=== PATIENT | male | born 1945 | race Caucasian/White ===

== ENCOUNTER → 2017-01-26 | Outpatient (CLI) | payer OTHER ==
[~2017-01-26] MED LIST: ASPI81TA28 PO; ATOR-22 PO; CETI10TA84 PO; PRLSR20 PO
[2017-01-26 13:55] LABS: LYME DISEASE AB IGG NEG (NEG); LYME DISEASE AB IGM NEG (NEG)
[2017-01-26 14:09] LABS: AST/SGOT 23 U/L (15-37); BLOOD UREA NITROGEN 17 mg/dl (7-18); BUN/CREATININE RATIO 18.1 (10-20); CALCIUM 8.3 mg/dl (8.5-10.1); CARBON DIOXIDE 22 mmol/L (21-32); CHLORIDE 112 mmol/L (98-107); CHOLESTEROL 129 mg/dl (0-200); CREATININE 0.96 mg/dl (0.60-1.40); GLUCOSE 103 mg/dl (70-99); SODIUM 143 mmol/L (136-145)
[2017-01-26 14:13] LABS: ALB/GLOB RATIO 1.1 (0.9-2); ALKALINE PHOSPHATASE 65 U/L (45-117); ALT/SGPT 25 U/L (12-78); CHOLESTEROL/HDL RATIO 3.2; HDL CHOLESTEROL 40 mg/dl; LDL CHOLESTEROL CALCULATED 75 mg/dl; TRIGLYCERIDES 68 mg/dl (0-150); VERY LOW DENSITY LIPOPROT CALC 14 mg/dl
== END | disposition home or self-care (01) ==
LOC: C.LABPVFM 07:52
PROVIDERS: ATTEND Family Medicine
DX: Z11.59 Encounter for screening for other viral diseases (principal); R73.01 Impaired fasting glucose; E78.5 Hyperlipidemia, unspecified; G47.33 Obstructive sleep apnea (adult) (pediatric); K20.9 Esophagitis, unspecified; W57.XXXA Bitten or stung by nonvenomous insect and other nonvenomous arthropods, initial encounter

== ENCOUNTER → 2017-03-29 | Outpatient (CLI) | payer OTHER ==
--- NOTE | 2017-03-29 14:45 | DIAGNOSTIC IMAGING REPORT ---
(RENAL)RETROPERITON COMP CLINICAL HISTORY: 71 years-old Male presenting with acquired cyst of the kidney. TECHNIQUE: Real-time grayscale and limited color Doppler ultrasound imaging of the kidneys and bladder was performed. COMPARISON: 01/15/2015. FINDINGS: Right kidney: Normal echogenicity. Right kidney measures 12.3 cm. No hydronephrosis. 1.5 x 1.1 x 0.9 cm simple appearing parapelvic cyst in the interpolar region. This was likely present on prior exam. Normal perfusion. Left kidney: Normal echogenicity. Left kidney measures 12.2 cm. No hydronephrosis. 8.8 x 7.0 x 6.7 cm exophytic simple appearing cyst laterally at the lower pole, previously 7.4 x 7.4 x 7.7 cm. Additional simple cysts at the medial aspect of the lower pole measuring 4.3 x 4.7 x 4.4 cm, previously 4.8 x 4.3 x 3.5 cm. Normal perfusion. Bladder: No bladder wall thickening. Bilateral ureteral jets present. Other: None. IMPRESSION: 1. Simple appearing bilateral renal cysts, the largest on the left may be slightly increased in size since the prior exam. No sonographic evidence of obstruction or suspicious renal mass. Electronically signed by: Stephen Torres M.D. 03/29/2017 2:44 PM Dictated Date/Time: 03/29/2017 2:40 PM
--- NOTE | 2017-04-05 07:05 | CODING QUERY MEDICAL NECESSITY ---
SUPPORTING DIAGNOSIS NEEDED Dr. Spaulding, A supporting diagnosis is required for the test/procedure performed on this patient in order for us to be reimbursed by the patient's insurance. Please provide a supporting diagnosis for the following test/procedure listed below next to the test name along with your signature. *If there is no additional diagnosis for this patient that would support the following test/procedure please document that below next to the test/procedure. Test(s)/Procedure(s) that require a supporting diagnosis: * [id number] PSA DIAGNOSIS: DATE OF SERVICE: 03/29/17 Provider Signature: Date: Thank you Andrews Vazquez [facility] Information Management Once completed, please kindly fax back to [phone] For questions please call [phone]
== END | disposition home or self-care (01) ==
LOC: C.ULTR 13:11
PROVIDERS: ATTEND Urology
DX: N28.1 Cyst of kidney, acquired (principal); N40.0 Benign prostatic hyperplasia without lower urinary tract symptoms

== ENCOUNTER 2022-06-28 16:55 | Observation (INO) ==
[2022-06-28] MEDS ORDERED: FAMOTIDINE 20MG IV PUSH 20 MG/5 ML SYR IV STA (17:10)
[2022-06-28] MEDS ORDERED: diphenhydrAMINE 50 MG/ML VIAL IV STA (17:10)
[2022-06-28] MEDS ORDERED: methylPREDNISolone 125 MG/2 ML VIAL IV STA (17:10)
[2022-06-28] MEDS ORDERED: SODIUM CHLORIDE 0.9% 1000ML 500 ML IV ONE (17:10)
[2022-06-28 17:49] LABS: Basophils # (auto) 0.06 K/uL (0-0.2); Basophils % (auto) 1.1 %; Eosinophils # (auto) 0.08 K/uL (0-0.50); Eosinophils % (auto) 1.5 %; Hematocrit (blood only) 44.6 % (40.1-51.0); Hemoglobin 15.5 g/dl (14.0-18.0); Immature Granulocytes # (auto) 0.03 K/uL (0.00-0.02); Immature Granulocytes % (auto) 0.6 %; Lymphocytes # (auto) 1.17 K/uL (1.2-3.4); Lymphocytes % (auto) 21.5 %; Mean Corpuscular Hemoglobin 30.8 pg (25.0-34.0); Mean Corpuscular Hgb Conc 34.8 g/dL (32.0-36.0); Mean Corpuscular Volume 88.7 fL (80.0-100.0); Mean Platelet Volume 10.5 fL (9.4-12.4); Monocytes # (auto) 0.59 K/uL (0.24-0.82); Monocytes % (auto) 10.8 %; Neutrophils # (auto) 3.51 K/uL (1.4-6.5); Neutrophils % (auto) 64.5 %; Platelet Count 190 K/uL (130-400); RDW Coefficient of Variation 13.3 % (11.5-14.5); RDW Standard Deviation 43.3 fL (36.4-46.3); Red Blood Count 5.03 M/uL (4.63-6.08); White Blood Count 5.44 K/ul (4.8-10.8)
--- NOTE | 2022-06-28 17:55 | Emergency Department Note ---
History of Present Illness General Chief complaint: Allergic Reaction Stated complaint: SWOLLEN TONGUE ON LEFT SIDE Time Seen by Provider: 06/28/22 17:09 History of Present Illness Provider complaint: L tongue swelling Onset (ago): hour(s) 1 Location: mouth and left Radiation: non-radiation Current Pain Intensity: 0 Relieved By: + none Exacerbated By: + none Associated symptoms: no confusion, no chest pain, no cough, no fever/chills, no headaches, no nausea/vomiting or no shortness of breath 76-year-old male presents emergency department for left tongue swelling. Patient states he was outside blowing his leaves when suddenly he reported to his that his left tongue felt swollen and she looked in his mouth and it appeared swollen. He reports no difficulty breathing. No rash. Patient states he did not eat anything new and does not think he was bit by anything. Patient is on lisinopril. Home Medications Medication Instructions Recorded Confirmed Type fluticasone propionate 50 2 sprays intranasal DAILY PRN 03/16/19 06/28/22 Hi story mcg/actuation nasal Allergy Symptoms #1 g spray,suspension cholecalciferol (vitamin D3) 125 125 mcg PO QAM 04/01/21 06/28/22 History mcg (5,000 unit) capsule hydrochlorothiazide 25 mg tablet 25 mg PO QAM #90 tabs 09/29/21 06/28/22 Rx lisinopril 20 mg tablet 20 mg PO DAILY #90 tabs 05/05/22 06/28/22 Rx Allergies Allergy/AdvReac Type Severity Reaction Status Date / Time Opioids - Morphine Analogues Allergy Intermediate Nausea Verified 06/28/22 19:51 oxycodone [From Percocet] Allergy Intermediate Nausea Verified 06/28/22 19:51 weed pollen Allergy Intermediate Nausea Verified 06/28/22 19:51 pollen extracts Allergy Unknown Unknown Verified 06/28/22 19:51 morphine AdvReac Unknown N/V, Verified 06/28/22 19:51 diaphoretic Past Med/Surg History Medical History Benign prostatic hyperplasia with urinary obstruction Chronic back pain Diabetes Type II Hgb A1C 6.3 on 03/27/21 GERD (gastroesophageal reflux disease) OCCASIONAL Hiatal hernia Hyperlipidemia Diet controlled Hypertension Mixed conductive and sensorineural hearing loss Hearing aids bilaterally Obesity (BMI 30-39.9) Osteoarthritis Renal cyst Just monitoring Sleep apnea CPAP Vertigo Occasionally Surgical History H/O hernia repair History of adenoidectomy History of ankle surgery right History of colonoscopy History of esophagogastroduodenoscopy (EGD) History of laminectomy lumbar History of nasal septoplasty History of repair of rotator cuff RIGHT W/ 3 SCREWS History of tonsillectomy History of total knee replacement LEFT KNEE Family History Family/Other Hypertension Nephrolithiasis Denies family history of Ovarian cancer Prostate cancer Myocardial infarction Breast cancer Colorectal cancer Social History Smoking Status: Never smoker Tobacco Type: Cigarettes Age Started Using Tobacco: 14; Age Quit Using Tobacco: 40; Cigarettes Per Day: 10; Second Hand Exposure: Yes; Hx Alcohol Use: Yes Alcohol type: beer and hard liquor Hx Substance Use: No Preferred Language: Indian Communication Ability: Effective Hearing Ability: Use of Hearing Aid Director Public Service Required: No Beliefs That Will Affect Care: None marital status: Current Living Situation: Spouse current occupational status: retired How many Children do You have: 1 Feels Safe at Home: Yes Safety Concerns: Feels Safe At This Time Childhood Exposure to Second-Hand Smoke: Yes caffeine: Yes Dental Care, Regularly: Yes Physical Activity Frequency: Daily Seatbelt Use: always Sunscreen Use: No Assistive Devices: Glasses and Hearing Aid - Bilateral Review of Systems A total of 10 systems reviewed and were otherwise negative Physical Exam Vital Signs Vital Signs - 24 hr 06/28/22 17:00 06/28/22 17:26 06/28/22 17:26 Temperature 36.8 C Temperature Source Temporal Artery Scan Pulse Rate 82 Pulse Rate [Apical] 64 Pulse Rhythm Regular Pulse Rhythm [Apical] Regular Respiratory Rate 16 20 Respiratory Effort / Characteristics Non-Labored Spontaneous Respiratory Depth Normal Blood Pressure 139/77 Blood Pressure Mean 97 Pulse Oximetry 94 96 Oxygen Delivery Method Room Air Room Air Room Air Sepsis Recent Fever Within 48 Hours No Sepsis New/Unexplained Change in Mental Status No Sepsis Action Taken by Nursing No Action Required Physical Exam GENERAL: He is oriented to person, place, and time. He appears well-developed and well-nourished. He does not appear distressed. HENT: Exam performed. - Head: Normocephalic and atraumatic. - Right Ear: External ear normal. No mastoid tenderness. - Left Ear: External ear normal. No mastoid tenderness. - Mouth/Throat: The oropharynx is clear and moist. No trismus in the jaw. No dental abscesses or uvula swelling. No oropharyngeal exudate or tonsillar abscesses. Left tongue swelling. No evidence of trauma. No submental swelling or tongue elevation. EYES: Conjunctivae and EOM are normal. Pupils are equal, round, and reactive to light. Right eye exhibits no discharge. Left eye exhibits no discharge. No scleral icterus. NECK: Normal range of motion. Neck supple. No JVD present. No spinous process tenderness present. No carotid bruit present. No rigidity. No tracheal deviation and normal range of motion present. No Brudzinski's sign and no Kernig's sign noted. CV: Normal rate, regular rhythm, normal heart sounds and intact distal pulses. There is no peripheral edema. Palpable radial pulses bue. PULM/CHEST: Effort normal and breath sounds normal. No respiratory distress. No stridor. He has no wheezes. He has no rales. - Chest Wall: He exhibits no tenderness. ABD: The abdomen is soft. Bowel sounds are normal. He has no distension. No mass is present. There is no tenderness. There is no rebound, no guarding, no Baca's sign and no tenderness at McBurney's point. Rovsig negative. MUSC/SKEL: Normal range of motion. There is no peripheral edema, tenderness or deformity. LYMPH: No cervical adenopathy. NEURO: He is alert and oriented to person, place, and time. He has normal strength. No cranial nerve deficit or sensory deficit. Coordination and gait normal. GCS eye subscore is 4. GCS verbal subscore is 5. GCS motor subscore is 6. Cerebellar tests wnl. SKIN: Skin is warm and dry. He is not diaphoretic. PSYCH: He has a normal mood and affect. Behavior is normal. Judgment and thought content normal. Course Course 1708: The patient was evaluated in room C12. A complete history and physical exam was performed Cardiac monitoring: An order was placed for continuous cardiac monitoring. The monitor shows a rate of 60 with sinus rhythm 180: Vital signs stable. Patient in no respiratory distress. Tongue swelling has not worsened but has not improved status post IV Benadryl IV Pepcid IV fluids and IV steroids. It is thought that the patient is most likely suffering from angioedema most likely due to his lisinopril. Patient no respiratory distress. Will be evaluated hospitalist team for observation to make sure that his swelling does not worsen. Case will be discussed with Dr. Becerril [facility] hospitalist. Administered Medications Lactated Ringer's (Lr) 1,000 mls @ 125 mls/hr IV .Q8H SANDRINE Stop: 07/28/22 20:29 Last Admin: 06/28/22 20:59 Dose: 125 mls/hr Documented By: AMY Discontinued Medications Diphenhydramine HCl (Diphenhydramine 50 Mg/Ml Vial) 25 mg IV NOW STA Stop: 06/28/22 17:11 Last Admin: 06/28/22 17:19 Dose: 25 mg Documented By: FRANKLIN Sodium Chloride (Nss 1000ml) 500 mls @ 999 mls/hr IV .Q31M ONE Stop: 06/28/22 17:40 Last Infusion: 06/28/22 18:40 Dose: 0 mls/hr Documented By: Admin: 06/28/22 17:20 Dose: 999 mls/hr Documented By: FRANKLIN Famotidine (Pepcid 20mg Iv Push) 20 mg in 5 mls @ 2.5 mls/min IV NOW STA Stop: 06/28/22 17:11 Last Admin: 06/28/22 17:20 Dose: 2.5 mls/min Documented By: FRANKLIN Methylprednisolone (Methylprednisolone 125 Mg/2 Ml Vial) 125 mg IV NOW STA Stop: 06/28/22 17:11 Last Admin: 06/28/22 17:19 Dose: 125 mg Documented By: FRANKLIN Medical Decision Making Laboratory Data Result diagrams: 06/28/22 17:24 06/28/22 17:24 Lab Results 06/28/22 06/28/22 06/28/22 Range/Units 17:24 17:24 17:55 WBC 5.44 (4.8-10.8) K/ul RBC 5.03 (4.63-6.08) M/uL Hgb 15.5 (14.0-18.0) g/dl Hct 44.6 (40.1-51.0) % MCV 88.7 (80.0-100.0) fL MCH 30.8 (25.0-34.0) pg MCHC 34.8 (32.0-36.0) g/dL RDW Std Deviation 43.3 (36.4-46.3) fL RDW Coeff of Marcus 13.3 (11.5-14.5) % Plt Count 190 (130-400) K/uL MPV 10.5 (9.4-12.4) fL Immature Gran % (Auto) 0.6 % Neut % (Auto) 64.5 % Lymph % (Auto) 21.5 % [place] % (Auto) 10.8 % Eos % (Auto) 1.5 % Baso % (Auto) 1.1 % Neut # (Auto) 3.51 (1.4-6.5) K/uL Lymph # (Auto) 1.17 L (1.2-3.4) K/uL [place] # (Auto) 0.59 (0.24-0.82) K/uL Eos # (Auto) 0.08 (0-0.50) K/uL Baso # (Auto) 0.06 (0-0.2) K/uL Immature Gran # (Auto) 0.03 H (0.00-0.02) K/uL Sodium 139 (136-145) mmol/L Potassium 4.2 (3.5-5.1) mmol/L Chloride 105 (98-107) mmol/L Carbon Dioxide 27 (21-32) mmol/L Anion Gap 7 (3-11) BUN 18 (6-23) mg/dl Creatinine 1.13 (0.6-1.4) mg/dl Est Cr Clr Drug Dosing Not Reportable Est GFR ( Amer) 72.8 ml/min Est GFR (Non-Af Amer) 62.8 ml/min BUN/Creatinine Ratio 15.9 (10-20) Glucose 90 (70-99(Fasting)) mg/dl Calcium 9.4 (8.5-10.1) mg/dl SARS-CoV-2, RNA, NAAT POSITIVE A* (NEGATIVE) Imaging Data Radiologist's Impression: Chest X-Ray 06/28/22 18:13 XR chest 1V portable CLINICAL HISTORY: Shortness of breath. COMPARISON STUDY: Chest radiograph April 08, 2021. FINDINGS: Lung volumes are normal. Lungs are clear. There is no pneumothorax or pleural effusion. Cardiac size is normal. Mediastinal contours are normal. There is no evidence for pulmonary edema. IMPRESSION: No acute cardiopulmonary findings. ACT 112: Negative or not required by law. Electronically signed by: Diego May M.D. 06/28/2022 6:36 PM MDM Narrative Vital signs stable. Patient in no respiratory distress. Tongue swelling has not worsened but has not improved status post IV Benadryl IV Pepcid IV fluids and IV steroids. It is thought that the patient is most likely suffering from angioedema most likely due to his lisinopril. Patient no respiratory distress. Will be evaluated hospitalist team for observation to make sure that his swelling does not worsen. Case will be discussed with Dr. Becerril [facility] hospitalist. Impression & Plan Angioedema Discharge Plan Visit Data Chief Complaint: Allergic Reaction Stated Complaint: SWOLLEN TONGUE ON LEFT SIDE ED Provider: Ulises Middleton Discharge Problem: Angioedema Patient Disposition: Admitted As Inpatient Discharge Instructions Interventions: ED Discharge Assessment Last Done: 06/28/22 20:13
[2022-06-28 18:14] LABS: Anion Gap 7 (3-11); BUN Creatinine Ratio 15.9 (10-20); Blood Urea Nitrogen 18 mg/dl (6-23); Calcium 9.4 mg/dl (8.5-10.1); Carbon Dioxide 27 mmol/L (21-32); Chloride 105 mmol/L (98-107); Est GFR (African American) 72.8 ml/min; Est GFR (Non-African American) 62.8 ml/min; Glucose 90 mg/dl (70-99(Fasting)); Potassium 4.2 mmol/L (3.5-5.1); Sodium 139 mmol/L (136-145)
--- NOTE | 2022-06-28 18:24 | History & Physical Report ---
Date of Service June 28, 2022 Assessment & Plan (1) 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): Plan: - Angioedema most likely secondary to lisinopril without any throat swelling, airway currently stable, will discontinue lisinopril - With improved clinical status deferred FFP - Start 4 day course of prednisone 40mg - Start cetirizine to cover for possible allergic cause - IV Benadryl prn for worsening angioedema - will check C4 - NPO until swelling improves, will start on lactated ringers 125mL/hour while NPO - admit to PCU for monitoring of angioedema (2) Hypertension: Plan: - Continue HCTZ - Will need to f/u with PCP to discuss alternative HTN regimen History of Present Illness Chief Complaint: Angioedema Primary Care Provider: Paul Dotson, 76 year old male with a past medical history of HTN, HLD, GERD, BPH, LACY, impaired fasting glucose presents with left sided tongue swelling. Swelling began this afternoon around 4pm while he was cleaning up leaves in his yard. His lisinopril was increased from 10mg to 20mg in 04/2022. He denies any prior side effects with the lisinopril; dry cough, angioedema. He is also on HCTZ for his HTN, but states that he has not been on any other medications for his blood pressure in the past. He denies any rash, throat swelling, shortness of breath. Denies any new foods, medications or products. ED course significant forIV Benadryl, IV Pepcid, IV fluids and IV steroids with some improvement of swelling. States that initially he didn't have much feeling in his tongue and was very difficult to talk and he has seen improvement in both. Of note his COVID test was positive in the ED. He states that he tested positive for COVID a month ago. He no longer has any symptoms and took at course of Paxlovid at that time. Allergies Allergy/AdvReac Type Severity Reaction Status Date / Time Opioids - Morphine Analogues Allergy Intermediate Nausea Verified 05/05/22 09:34 oxycodone [From Percocet] Allergy Intermediate Nausea Verified 05/05/22 09:34 weed pollen Allergy Intermediate Nausea Verified 05/05/22 09:34 pollen extracts Allergy Unknown Unknown Verified 05/05/22 09:34 morphine AdvReac Unknown N/V, Verified 05/05/22 09:34 diaphoretic Home Medications Medication Instructions Recorded Confirmed Type fluticasone propionate 50 2 sprays intranasal DAILY PRN 03/16/19 05/05/22 History mcg/actuation nasal Allergy Symptoms #1 g spray,suspension cholecalciferol (vitamin D3) 125 125 mcg PO QAM 04/01/21 05/05/22 History mcg (5,000 unit) capsule hydrochlorothiazide 25 mg tablet 25 mg PO QAM #90 tabs 09/29/21 05/05/22 Rx lisinopril 20 mg tablet 20 mg PO DAILY #90 tabs 05/05/22 05/05/22 Rx nirmatrelvir 300 mg (150 mg See Rx Instructions PO .COMPLEX 05/08/22 05/08/22 Rx x2)-ritonavir 100 mg tablet,dose #30 ea pack(EUA) (Paxlovid) Past Med/Surg History Medical History Benign prostatic hyperplasia with urinary obstruction Chronic back pain Diabetes Type II Hgb A1C 6.3 on 03/27/21 GERD (gastroesophageal reflux disease) OCCASIONAL Hiatal hernia Hyperlipidemia Diet controlled Hypertension Mixed conductive and sensorineural hearing loss Hearing aids bilaterally Obesity (BMI 30-39.9) Osteoarthritis Renal cyst Just monitoring Sleep apnea CPAP Vertigo Occasionally Surgical History H/O hernia repair History of adenoidectomy History of ankle surgery right History of colonoscopy History of esophagogastroduodenoscopy (EGD) History of laminectomy lumbar History of nasal septoplasty History of repair of rotator cuff RIGHT W/ 3 SCREWS History of tonsillectomy History of total knee replacement LEFT KNEE Family History Family/Other Hypertension Nephrolithiasis Denies family history of Ovarian cancer Prostate cancer Myocardial infarction Breast cancer Colorectal cancer Social History Smoking Status: Former smoker Tobacco Type: Cigarettes Age Started Using Tobacco: 14; Age Quit Using Tobacco: 40; Cigarettes Per Day: 10; Second Hand Exposure: Yes; Hx Alcohol Use: Yes Alcohol type: beer, wine and hard liquor Hx Substance Use: No Preferred Language: Estonian Communication Ability: Effective Hearing Ability: Use of Hearing Aid 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 Beliefs That Will Affect Care: None marital status: Current Living Situation: Spouse current occupational status: retired How many Children do You have: 1 Feels Safe at Home: Yes Childhood Exposure to Second-Hand Smoke: Yes caffeine: Yes Dental Care, Regularly: Yes Physical Activity Frequency: Daily Seatbelt Use: always Sunscreen Use: No Assistive Devices: CPAP, Glasses and Hearing Aid - Bilateral Review of Systems Constitutional: no fever, no chills and no fatigue Ear, Nose, Mouth, Throat: no facial pain and no pain with swallowing Respiratory: no cough and no dyspnea Cardiovascular: no chest pain and no dyspnea Physical Exam Physical Exam: Constitutional: well-appearing, no acute distress HEENT: NCAT, no conjunctival injection, swelling on left side of distal tongue, no swelling of throat CV: regular rhythm, no murmur appreciated, extremities well-perfused, no LE edema Resp: CTABL, no wheezes/rales/rhonchi appreciated, no increased work of breathing GI: soft, nondistended, nontender, BS normoactive MSK: no gross deformities appreciated Skin: warm, dry, no rash appreciated Neuro: alert, oriented, no focal neurologic deficit appreciated Results & Data Results & Data ([facility]) Vital Signs (Past 12 Hours) Vital Signs Temp Pulse Pulse Resp BP Pulse Ox O2 Del Method 06/28/22 17:26 64 20 96 Room Air 06/28/22 17:26 Room Air 06/28/22 17:00 36.8 C 82 16 139/77 94 Room Air Laboratory Results Laboratory Results WBC 5.44 K/ul (4.8-10.8) 06/28/22 17:24 RBC 5.03 M/uL (4.63-6.08) 06/28/22 17:24 Hgb 15.5 g/dl (14.0-18.0) 06/28/22 17:24 Hct 44.6 % (40.1-51.0) 06/28/22 17:24 MCV 88.7 fL (80.0-100.0) 06/28/22 17:24 MCH 30.8 pg (25.0-34.0) 06/28/22 17:24 MCHC 34.8 g/dL (32.0-36.0) 06/28/22 17:24 RDW Std Deviation 43.3 fL (36.4-46.3) 06/28/22 17: RDW Coeff of Marcus 13.3 % (11.5-14.5) 06/28/22 17: Plt Count 190 K/uL (130-400) 06/28/22 17:24 MPV 10.5 fL (9.4-12.4) 06/28/22 17: Immature Gran % (Auto) 0.6 % 06/28/22 17: Neut % (Auto) 64.5 % 06/28/22 17:24 Lymph % (Auto) 21.5 % 06/28/22 17: [place] % (Auto) 10.8 % 06/28/22 17: Eos % (Auto) 1.5 % 06/28/22 17: Baso % (Auto) 1.1 % 06/28/22 17:24 Neut # (Auto) 3.51 K/uL (1.4-6.5) 06/28/22 17: Lymph # (Auto) 1.17 K/uL (1.2-3.4) L 06/28/22 17:24 [place] # (Auto) 0.59 K/uL (0.24-0.82) 06/28/22 17:24 Eos # (Auto) 0.08 K/uL (0-0.50) 06/28/22 17:24 Baso # (Auto) 0.06 K/uL (0-0.2) 06/28/22 17: Immature Gran # (Auto) 0.03 K/uL (0.00-0.02) H 06/28/22 17:24 Sodium 139 mmol/L (136-145) 06/28/22 17:24 Potassium 4.2 mmol/L (3.5-5.1) 06/28/22 17:24 Chloride 105 mmol/L (98-107) 06/28/22 17:24 Carbon Dioxide 27 mmol/L (21-32) 06/28/22 17:24 Anion Gap 7 (3-11) 06/28/22 17:24 BUN 18 mg/dl (6-23) 06/28/22 17:24 Creatinine 1.13 mg/dl (0.6-1.4) 06/28/22 17:24 Est Cr Clr Drug Dosing Not Reportable 06/28/22 17:24 Est GFR ( Amer) 72.8 ml/min 06/28/22 17:24 Est GFR (Non-Af Amer) 62.8 ml/min 06/28/22 17:24 BUN/Creatinine Ratio 15.9 (10-20) 06/28/22 17:24 Glucose 90 mg/dl (70-99(Fasting)) 06/28/22 17:24 Calcium 9.4 mg/dl (8.5-10.1) 06/28/22 17:24 SARS-CoV-2, RNA, NAAT POSITIVE (NEGATIVE) A* 06/28/22 17:55 Impressions Chest X-Ray 06/28/22 18:13 XR chest 1V portable CLINICAL HISTORY: Shortness of breath. COMPARISON STUDY: Chest radiograph April 08, 2021. FINDINGS: Lung volumes are normal. Lungs are clear. There is no pneumothorax or pleural effusion. Cardiac size is normal. Mediastinal contours are normal. There is no evidence for pulmonary edema. IMPRESSION: No acute cardiopulmonary findings. ACT 112: Negative or not required by law. Electronically signed by: Diego May M.D. 06/28/2022 6:36 PM Supervising Physician Co-Signing Physician Notes Patient seen and examined, chart reviewed, case discussed with Daily Montano, and I agree with the assessment and plan as above except as otherwise noted Labs and images reviewed Andrews is a 76-year-old male with a past medical history of impaired fasting glucose, hypertension, LACY, hyperlipidemia, hyperhidrosis, elevated BMI, allergies, BPH with LUTS who presented when he developed the onset of sudden tongue swelling while blowing leaves this morning. He had no new foods, no new medication changes, no new exposures. No rash/urticaria/chest pain/chest pressure. At bedside he is not having difficulty breathing, is not wheezing, and is not having fever/chills/chest pain. No wheezing. Symmetrical chest rise, breathing is unlabored, heart rate is regular. Uvula is midline. He is on lisinopril. Patient presentation is consistent with angioedema 2/2 lisinopril. SHILPI held. Was started on methylprednisolone 125 mg, famotidine, diphenhydramine in ER. Med telemetry for airway monitoring. Given stable clinical appearance and gradual improvement FFP, TXA deferred. Expect gradual improvement over next 24 hours. While suspicious for SHILPI/bradykinin induced angioedema we will continue to cover for allergic causes with cetirizine daily. C4 level sent.
--- NOTE | 2022-06-28 18:37 | XRay Report ---
XR chest 1V portable CLINICAL HISTORY: Shortness of breath. COMPARISON STUDY: Chest radiograph April 08, 2021. FINDINGS: Lung volumes are normal. Lungs are clear. There is no pneumothorax or pleural effusion. Car diac size is normal. Mediastinal contours are normal. There is no evidence for pulmonary edema. IMPRESSION: No acute cardiopulmonary findings. ACT 112: Negative or not required by law. Electronically signed by: Diego May M.D. 06/28/2022 6:36 PM
[2022-06-28] MEDS ORDERED: diphenhydrAMINE 50 MG/ML VIAL IV PRN (20:30)
[2022-06-28] MEDS: LACTATED RINGER'S 1,000 ML IV SCH (20:59)
[2022-06-29] MEDS: LACTATED RINGER'S 1,000 ML IV SCH ×2 (03:51→11:55)
[2022-06-29] MEDS ORDERED: predniSONE 20 MG TAB PO SCH (09:00)
[2022-06-29] MEDS ORDERED: CETIRIZINE HCL 10 MG TABLET PO SCH (09:00)
[2022-06-29] MEDS ORDERED: amLODIPine BESYLATE 5 MG TAB PO ONE (15:02)
--- NOTE | 2022-06-29 15:07 | Discharge Summary ---
Date of Service June 29, 2022 Admission HPI Per Admitting Provider 76 year old male with a past medical history of HTN, HLD, GERD, BPH, LACY, impaired fasting glucose presents with left sided tongue swelling. Swelling began this afternoon around 4pm while he was cleaning up leaves in his yard. His lisinopril was increased from 10mg to 20mg in 04/2022. He denies any prior side effects with the lisinopril; dry cough, angioedema. He is also on HCTZ for his HTN, but states that he has not been on any other medications for his blood pressure in the past. He denies any rash, throat swelling, shortness of breath. Denies any new foods, medications or products. ED course significant forIV Benadryl, IV Pepcid, IV fluids and IV steroids with some improvement of swelling. States that initially he didn't have much feeling in his tongue and was very difficult to talk and he has seen improvement in both. Of note his COVID test was positive in the ED. He states that he tested positive for COVID a month ago. He no longer has any symptoms and took at course of Paxlovid at that time. Admission Exam Per Admitting Provider Constitutional: well-appearing, no acute distress HEENT: NCAT, no conjunctival injection, swelling on left side of distal tongue, no swelling of throat CV: regular rhythm, no murmur appreciated, extremities well-perfused, no LE edema Resp: CTABL, no wheezes/rales/rhonchi appreciated, no increased work of breathing GI: soft, nondistended, nontender, BS normoactive MSK: no gross deformities appreciated Skin: warm, dry, no rash appreciated Neuro: alert, oriented, no focal neurologic deficit appreciated Principal Diagnosis angioedema Discharge Exam Constitutional: well-appearing, no acute distress HEENT: NCAT, no conjunctival injection, slight swelling on left side of face, no swelling of throat CV: regular rhythm, no murmur appreciated, extremities well-perfused, no LE edema Resp: CTABL, no wheezes/rales/rhonchi appreciated, no increased work of breathing GI: soft, nondistended, nontender, BS normoactive MSK: no gross deformities appreciated Skin: warm, dry, no rash appreciated Neuro: alert, oriented, no focal neurologic deficit appreciated Discharge Data Allergies Allergy/AdvReac Type Severity Reaction Status Date / Time Opioids - Morphine Analogues Allergy Intermediate Nausea Verified 06/28/22 19:51 oxycodone [From Percocet] Allergy Intermediate Nausea Verified 06/28/22 19:51 weed pollen Allergy Intermediate Nausea Verified 06/28/22 19:51 pollen extracts Allergy Unknown Unknown Verified 06/28/22 19:51 morphine AdvReac Unknown N/V, Verified 06/28/22 19:51 diaphoretic Consultations 06/28/22 18:07 ED Decision to Admit Stat Ordered Studies CBC 06/28/22 Range/Units 17:24 WBC 5.44 (4.8-10.8) K/ul RBC 5.03 (4.63-6.08) M/uL Hgb 15.5 (14.0-18.0) g/dl Hct 44.6 (40.1-51.0) % Plt Count 190 (130-400) K/uL Neut # (Auto) 3.51 (1.4-6.5) K/uL Lymph # (Auto) 1.17 L (1.2-3.4) K/uL [place] # (Auto) 0.59 (0.24-0.82) K/uL Eos # (Auto) 0.08 (0-0.50) K/uL Baso # (Auto) 0.06 (0-0.2) K/uL Comprehensive Metabolic Panel 06/28/22 Range/Units 17:24 Sodium 139 (136-145) mmol/L Potassium 4.2 (3.5-5.1) mmol/L Chloride 105 (98-107) mmol/L Carbon Dioxide 27 (21-32) mmol/L BUN 18 (6-23) mg/dl Creatinine 1.13 (0.6-1.4) mg/dl Glucose 90 (70-99(Fasting)) mg/dl Calcium 9.4 (8.5-10.1) mg/dl Intake and Output 06/29/22 06/29/22 06/29/22 06:59 14:59 22:59 Intake Total 858.333 / 7603.207 3000 / 1480 480 / 1480 Balance 858.333 / 6115.955 5224 / 1480 480 / 1480 Intake: IV 858.333 / 9034.669 9829 / 1000 Lactated Ringer's 1,000 ml @ 858.333 / 021.531 4682 / 1000 125 mls/hr IV .Q8H SANDRINE Rx#: [id number] Oral 480 / 480 Other: # Unmeasured Voids 1 Weight 113 kg 113 kg Weight Measurement Method Built in [facility] Patient Weight 06/30/22 06:59 Weight 113 kg Chest X-Ray 06/28/22 18:13 XR chest 1V portable CLINICAL HISTORY: Shortness of breath. COMPARISON STUDY: Chest radiograph April 08, 2021. FINDINGS: Lung volumes are normal. Lungs are clear. There is no pneumothorax or pleural effusion. Cardiac size is normal. Mediastinal contours are normal. There is no evidence for pulmonary edema. IMPRESSION: No acute cardiopulmonary findings. ACT 112: Negative or not required by law. Electronically signed by: Diego May M.D. 06/28/2022 6:36 PM Test Reason : Blood Pressure : / mmHG Vent. Rate : 054 BPM Atrial Rate : 054 BPM P-R Int : 230 ms QRS Dur : 096 ms QT Int : 502 ms P-R-T Axes : 051 046 031 degrees QTc Int : 476 ms Sinus bradycardia with 1st degree A-V block Otherwise normal ECG When compared with ECG of 18-APR-2018 15:58, MS interval has increased Vent. 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 Patient was treated w/ PO prednisone 40mg daily, IV Benadryl, Pepcid, IV fluids, and Zyrtec. Symptoms resolved overnight. Upon discharge home, he is prescribed 5 days of prednisone 40mg daily. The angioedema is thought to be most likely from SHILPI-inhibitor induced angioedema (lisinopril dose increased from 10mg to 20mg 2 months prior) versus allergic reaction (raked leaves prior to symptoms). As such, lisinopril will be discontinued and replaced with amlodipine 5mg. Continue home HCTZ. C4 level is pending. Other causes of angioedema such as infection, C1 esterase inhibitor deficiency, vasculitis, and idiopathic were considered, but less likely. (2) Hypertension: - See changes above. Discontinue lisinopril. Regimen will be amlodipine 5mg and HCTZ 25mg. Follow/adjust as needed. (3) COVID: Plan: - Patient tested covid positive this admission. Per chart review, he tetsted covid positive at home in April 2022 and was treated with Paxlovid at that time; URI symptoms fully resolved. Patient was on isolation during this admission per hospital protocol. (4) Hyperlipidemia: Plan: - Per outpatient notes, not currently on statin. Last LDL 100. - Ascvd 201 3 calculator. Age used: 75. 10 year ascvd >30%. Consider statin. (5) Impaired fasting glucose: Plan: - 03/2022 A1c 6.4, bordering diabetes. - Encourage intensive lifestyle mo difications as previous a1cs have all been in the diabetic range, but 6.4, has been highest. Repeat A1c as outpatient. Plan Plan: Patient was full code this admission. Total Time Total Time Spent Total Time Spent (In Minutes): Per attending Discharge Plan Discharge Items Patient Disposition: Home - Self-Care Reason For Visit: ANGIOEDEMA Discharge Diagnosis: Angioedema Activity: Per Instructions section Non-emergency contact: Primary Care Provider Call non-emergency contact if: you have any medication questions and your symptoms worsen Follow-up/Referrals: Paul Dotson DO [Primary Care Provider] - 07/06/22 12:00 pm (hospital discharge f/u within 1 week) Diet: Regular Addtl Attending Provider Instructions: You are seen in the hospital for concern of tongue swelling. For this reason you were evaluated in the emergency room. He had several tests and imaging done to rule out any form of infectious etiology. It is likely that your tongue swelling was secondary to a side effect known to lisinopril called angioedema. For this reason your lisinopril was discontinued and you were given steroids and antihistamines to help improve your symptoms. Additionally you were admitted to the hospital to be observed overnight to be sure that the swelling continued to go down and improve. As your swelling has not returned/has not gotten worse, we do feel it is safe for you to return home. We will be sending you home with a 4-day course of prednisone 40 mg once a day to ensure that the swelling does not return. Because the lisinopril was likely the culprit of this angioedema, you will be sent a new blood pressure medication to your pharmacy called amlodipine. Please follow-up with your primary care provider in 1 week for follow-up. Is been a pleasure to be a part of your care and we wish you the best in both your health and your recovery. Pending Studies at Discharge: Yes Studies:: Complement 4 Stand-Alone Forms: My [facility] [employer], Smoking Cessation Medications and DC Order Prescriptions: New prednisone 20 mg Tablet 40 mg PO DAILY Qty: 10 0RF amlodipine 5 mg tablet 5 mg PO DAILY Qty: 30 1RF Continued fluticasone propionate 50 mcg/actuation spray,suspension 2 sprays intranasal DAILY PRN (Reason: Allergy Symptoms) Qty: 1 hydrochlorothiazide 25 mg tablet 25 mg PO QAM Qty: 90 3RF cholecalciferol (vitamin D3) 125 mcg (5,000 unit) capsule 125 mcg PO QAM Discontinued lisinopril 20 mg tablet 20 mg PO DAILY Qty: 90 3RF Discharge Orders: Discharge Order (Routine); Ordered 06/29/22 Ordered By: Sigifredo Ferris/Other Patient Handouts: ED Angioedema Admission Data Admit Date/Time: 06/28/22 19:18 Attending Provider: Yamilex Butler Admit Provider: Daily Montano Primary Care Provider: Paul Dotson Other Providers: Stephen Joe Other Interventions: Discharge Summary Assessment (RN) Last Done: 06/29/22 14:15 Supervising Physician Co-Signing Physician Notes Medical Student Supervision Note: I was personally present during medical student patient encounter and independently interviewed and examined the patient and verified the smart history and physical, reviewed labs and image studies, discussed the case with Lilly Clay and agree with the findings and care plan. Andrews is a 76-year-old male with a past medical history of impaired fasting glucose, hypertension, LACY, hyperlipidemia, hyperhidrosis, elevated BMI, allergies, BPH with LUTS who presented when he developed the onset of sudden tongue swelling while blowing leaves. He had no new foods, no new medication changes, no new exposures. No rash/urticaria/chest pain/chest pressure. No difficulty breathing, no wheezing, and not having fever/chills/chest pain. He was noted to have left sided tongue and face swelling. Presentation consistent with lisinopril induced angioedema. Started on methylprednisolone 125mgs, famotidine, diphenhydramine in ER and kept on Med telemetry for airway monitoring. Lisinopril held. Tongue and facial swelling improved. Sent home on Prednisone. C 4 level pending at the time of discharge. Lisinopril replaced with amlodipine for BP control. Should f/u with PCP as outpatient.
== END 2022-06-29 17:33 | disposition home or self-care (01) ==
LOC: ED 16:55 → 4W 16:55 → SUATTDRO 19:18 → 4W 20:13

== ENCOUNTER 2024-07-15 11:50 | Observation (INO) ==
--- NOTE | 2024-07-15 12:40 | Emergency Department Note ---
Impression & Plan Unstable angina ED Provider Note Name: LISBETH GRAY Age: 78 Sex: Male Arrives Via: Walk-In Informant: Patient ED Provider: Anthony Cross MD Chief Complaint: Chest pain Impression: As per impressions above Medical Decision Makin-year-old gentleman arrives for evaluation of chest pain. On and off for the last few weeks to months. Did have a stress test a few weeks ago which showed inferior ischemia findings. Was going to have a cardiac CT however unable to get this done for several weeks to months. Arrives with recurrence of chest pain. Fortunately no active pain at the moment. EKG, labs including troponin are unremarkable. He has no shortness of breath, palpitations, hypoxia, hypotension I do not feel this is consistent with PE. There is no evidence of dissection. Discussed with cardiology who agree that this is quite concerning and plan will be to hospitalize overnight on heparin keep n.p.o. overnight and likely get a heart cath tomorrow. Hospitalist consulted for further management. Patient is comfortable with this plan. Triage/Nursing Notes reviewed by Me External Chart Review by me: Reviewed cardiology visit from June 24, 2024 discussing plan and options. Differential:Cardiac ischemia, aortic dissection, pulmonary embolism, pneumothorax, pneumonia, pericarditis, myocarditis, esophageal rupture, GERD, cholecystitis, pancreatitis, musculoskeletal, as well as other pathologies. Vital Signs: reviewed and remarkable for HTN Interventions: aspirin 324 mg PO Labs:ED labs Reviewed by me and remarkable for no significant abnormalities Imaging:X ray results are stated below per my interpretation: Chest: 1 view: No infiltrate, no effusion, normal cardiac border. EKG:As per my interpretation. Indication chest pain. Normal sinus rhythm at 77 bpm with frequent PVCs. QTc of 484. There is no ischemia appreciated. No significant change from 04/08/2021 EKG. Cardiac/Tele Monitoring: Cardiac Monitoring: An Order was placed for continuous cardiac monitoring. The monitor shows a rate of 80 with a normal sinus rhythm. Consults:Discussed with Dr Barajas of [facility] cardiology who agrees with plan for hospitalization and suggest starting heparin. Discussed with Dr. Wiggins of the [facility] hospitalist service will bring in for further management. Plan: Disposition:Hospitalization. Condition: Good History of Present Illness: 78-year-old male arrives for evaluation of chest pain. Patient with on and off chest pain for the last few months. He had been seen by cardiology and initial plan was to do a heart catheterization notes that switched plan to doing a CT cardiac study. Unfortunately cannot get the cardiac study until September. Patient notes that over the last few days worsening chest pain. Pain is not associated with exertion. Pain is onset at really anytime. Is left-sided mildly pressure-like. No shortness of breath, syncope, palpitation, nausea, vomiting, fevers, chills, abdominal pain, back pain or other concerning signs or symptoms. Denies any previous history of cardiac disease. He has been following with cardiology multiple times and reports an abnormal stress test. Past Medical History: Hypertension, dyslipidemia, BPH Home Medications:See Below Allergies:See Below Vitals:Blood Pressure: 166/85, Pulse 75, RR 20, T 36.5C, O2 94% on RA Physical Exam: GENERAL: Patient is well appearing and in no acute distress. RESPIRATORY: No dyspnea. Clear to auscultation and equal bilaterally. CARDIOVASCULAR: Regular rate and rhythm.No murmur appreciated. GASTROINTESTINAL: Abdomen soft, non-tender, no peritonitis. EXTREMITIES: Normal motion all extremities, no cyanosis, no edema. NEUROLOGIC: Alert and oriented. No focal neurologic deficits appreciated SKIN: No rash, no jaundice, no diaphoresis. PSYCH: Appropriate GCS: 15 ED Course: Times/Reassessments: Patient stable throughout comfortable. He is agreeable to hospitalization and starting heparin. He denies any headache, head injury, epigastric pain, blood in stool. He has had normal brown stools the last several days. Denies any outpatient blood thinner use recently. 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) Impaired fasting glucose Medical History COVID Arthritis of left acromioclavicular joint Left rotator cuff tear Vertigo Occasionally Renal cyst Just monitoring Left shoulder pain Dizziness Vitamin D deficiency Anxiety BMI 33.0-33.9,adult BRBPR (bright red blood per rectum) Belching Chronic sinusitis Excessive daytime sleepiness Excessive sweating Hiatal hernia Tubular adenoma of colon Inguinal hernia Insomnia Loose bowel movement Melena Mixed conductive and sensorineural hearing loss Hearing aids bilaterally Nonspecific abnormal electrocardiogram (ECG) (EKG) Obstructive sleep apnea Osteoarthritis of knee Tick bite Vision disturbance Obesity (BMI 30-39.9) Osteoarthritis Chronic back pain GERD (gastroesophageal reflux disease) OCCASIONAL Surgical History History of ankle surgery right History of laminectomy lumbar H/O hernia repair History of total knee replacement LEFT KNEE History of repair of rotator cuff RIGHT W/ 3 SCREWS History of esophagogastroduodenoscopy (EGD) History of colonoscopy History of nasal septoplasty History of tonsillectomy History of adenoidectomy Family History Family/Other Hypertension Nephrolithiasis Denies family history of Ovarian cancer Prostate cancer Myocardial infarction Breast cancer Colorectal cancer Social History Smoking Status: Never smoker Age Started Using Tobacco: 14; Age Quit Using Tobacco: 40; Cigarettes Per Day: 10; Second Hand Exposure: Yes; Do You Dip or Chew Tobacco: No; Hx Alcohol Use: Yes Alcohol type: beer and hard liquor Alcohol Intake Frequency: Monthly or Less Hx Substance Use: No Preferred Language: Amharic Communication Ability: Effective Visual Impairment: No Limitations Hearing Ability: Use of Hearing Aid Subway Operator Required: No Beliefs That Will Affect Care: None marital status: Current Living Situation: Spouse current occupational status: retired How many Children do You have: 1 Feels Safe at Home: Yes Childhood Exposure to Second-Hand Smoke: Yes Diet: regular caffeine: Yes during the past year weight has: remained stable Dental Care, Regularly: Yes Physical Activity Frequency: Daily Seatbelt Use: always Sunscreen Use: No Do you think of yourself as: straight/heterosexual Sexual Activity: has been sexually active, but not for at least 12 months Gender Identity: Male Assistive Devices: Hearing Aid - Bilateral Allergies Allergies Allergy/AdvReac Type Severity Reaction Status Date / Time Opioids - Morphine Analogues Allergy Intermediate Nausea Verified 07/15/24 15:03 oxycodone [From Percocet] Allergy Intermediate Nausea Verified 07/15/24 15:03 weed pollen Allergy Intermediate Nausea Verified 07/15/24 15:03 pollen extracts Allergy Unknown Unknown Verified 07/15/24 15:03 morphine AdvReac Unknown N/V, Verified 07/15/24 15:03 diaphoretic lisinopril Allergy Intermediate angioedema Uncoded 07/15/24 15:03 Home Meds Home Medications Medication Instructions Recorded Confirmed tadalafil 5 mg tablet 5 mg PO DAILY 07/15/24 07/15/24 Previous Rx's Medication Instructions Recorded hydrochlorothiazide 25 mg tablet 25 mg PO QAM #90 tabs 11/07/23 amlodipine 5 mg tablet 5 mg PO DAILY #90 tabs 12/29/23 famotidine 20 mg tablet 20 mg PO DAILY PRN gerd #100 tabs 05/07/24 atorvastatin 20 mg tablet 20 mg PO DAILY #90 tabs 05/23/24 Results & Data (ED) Vital Signs Vital Signs - 24 hr 07/15/24 11:54 07/15/24 12:03 07/15/24 12:03 Temperature 36.5 C Temperature Source Temporal Artery Scan Pulse Rate 66 Pulse Rate [Finger] 71 Respiratory Rate 18 20 Respiratory Effort / Characteristics Non-Labored Spontaneous Non-Labored Spontaneous Respiratory Depth Normal Normal Respiratory Pattern Regular Blood Pressure 153/80 H Blood Pressure [Right Arm] 166/85 H Blood Pressure Mean 104 Blood Pressure Mean [Right Arm] 112 Blood Pressure Position Sitting Blood Pressure Position [Right Arm] Semi-fowlers Pulse Oximetry 94 94 94 Oxygen Delivery Method Room Air Room Air Room Air Sepsis Recent Fever Within 48 Hours No Sepsis New/Unexplained Change in Mental Status N/A Sepsis Action Taken by Nursing No Action Required 07/15/24 12:34 07/15/24 13:44 07/15/24 14:11 Temperature Temperature Source Pulse Rate 75 Pulse Rate [Finger] 63 66 Respiratory Rate 20 18 Respiratory Effort / Characteristics Non-Labored Spontaneous Non-Labored Spontaneous Respiratory Depth Normal Normal Respiratory Pattern Regular Regular Blood Pressure Blood Pressure [Right Arm] 132/70 151/97 H Blood Pressure Mean Blood Pressure Mean [Right Arm] 90 115 Blood Pressure Position Blood Pressure Position [Right Arm] Semi-fowlers Semi-fowlers Pulse Oximetry 95 94 Oxygen Delivery Method Room Air Room Air Sepsis Recent Fever Within 48 Hours Sepsis New/Unexplained Change in Mental Status Sepsis Action Taken by Nursing 07/15/24 15:14 Temperature Temperature Source Pulse Rate Pulse Rate [Finger] 69 Respiratory Rate 18 Respiratory Effort / Characteristics Non-Labored Spontaneous Respiratory Depth Normal Respiratory Pattern Regular Blood Pressure Blood Pressure [Right Arm] 165/92 H Blood Pressure Mean Blood Pressure Mean [Right Arm] 116 Blood Pressure Position Blood Pressure Position [Right Arm] Pulse Oximetry 95 Oxygen Delivery Method Room Air Sepsis Recent Fever Within 48 Hours Sepsis New/Unexplained Change in Mental Status Sepsis Action Taken by Nursing Laboratory Data 07/15/24 12:09 07/15/24 12:09 Lab Results 07/15/24 07/15/24 Range/Units 12:09 15:11 WBC 5.01 (4.8-10.8) K/ul RBC 4.87 (4.70-6.10) M/uL Hgb 14.1 (14.0-18.0) g/dl Hct 42.0 (42.0-52.0) % MCV 86.2 (80.0-100.0) fL MCH 29.0 (25.0-34.0) pg MCHC 33.6 (32.0-36.0) g/dL RDW Std Deviation 41.1 (36.4-46.3) fL RDW Coeff of Marcus 13.2 (11.5-14.5) % Plt Count 180 (130-400) K/uL MPV 10.6 (9.4-12.4) fL Immature Gran % (Auto) 0.4 % Neut % (Auto) 65.4 % Lymph % (Auto) 20.0 % [place] % (Auto) 11.4 % Eos % (Auto) 2.0 % Baso % (Auto) 0.8 % Neut # (Auto) 3.28 (1.40-6.50) K/uL Lymph # (Auto) 1.00 L (1.20-3.40) K/uL [place] # (Auto) 0.57 (0.11-0.59) K/uL Eos # (Auto) 0.10 (0.00-0.50) K/uL Baso # (Auto) 0.04 (0.00-0.20) K/uL Immature Gran # (Auto) 0.02 (0.01-0.20) K/uL PT 10.9 (9.0-12.0) Seconds INR 1.0 (0.9-1.1) APTT 26 (21-31) Seconds PTT Ratio 1.0 Sodium 137 (136-145) mmol/L Potassium 3.5 (3.5-5.1) mmol/L Chloride 102 (98-107) mmol/L Carbon Dioxide 26 (21-32) mmol/L Anion Gap 9 (3-11) BUN 18 (6-23) mg/dl Creatinine 1.17 (0.6-1.4) mg/dl Est Cr Clr Drug Dosing 67.4 ml/min eGFR 63.81 BUN/Creatinine Ratio 15.4 (10-20) Glucose 133 H (70-99(Fasting)) mg/dl Calcium 9.6 (8.6-10.3) mg/dl Magnesium 1.6 L (1.7-2.4) mg/dl Total Bilirubin 1.2 H (0.2-1.0) mg/dl Direct Bilirubin 0.2 (0-0.2) mg/dl AST 37 (13-39) U/L ALT 19 (7-52) U/L Alkaline Phosphatase 60 (34-104) U/L Troponin I High Sens 10.2 9.8 (0-20) pg/ml Total Protein 7.0 (6.0-8.3) gm/dl Albumin 4.3 (3.4-5.0) gm/dl Administered Medications Magnesium Sulfate/Dextrose (Magnesium Sulfate / D5w) 1 gm in 100 mls @ 50 mls/hr IV Q2H SANDRINE Stop: 07/15/24 18:29 Last Admin: 07/15/24 16:57 Dose: 50 mls/hr Documented By: Infusion: 07/15/24 16:57 Dose: Infused Documented By: Admin: 07/15/24 15:11 Dose: 50 mls/hr Documented By: MORRO Heparin Sodium/Dextrose (Heparin Sodium/Dextrose) 25,000 units in 500 mls @ 20 mls/hr IV .Q24H [facility]; Protocol Stop: 08/14/24 14:59 Last Admin: 07/15/24 15:24 Dose: 1,000 units/hr, 20 mls/hr Documented By: MORRO Co-signed By: ANT Discontinued Medications Aspirin (Aspirin 81 Mg Chew) 324 mg PO NOW STA Stop: 07/15/24 14:23 Last Admin: 07/15/24 15:08 Dose: 324 mg Documented By: MORRO Heparin Sodium (Porcine) (Heparin Sod (Porcine) 1000 Unit/Ml) 4,000 units IV NOW ONE Stop: 07/15/24 14:58 Last Admin: 07/15/24 15:25 Dose: 4,000 units Documented By: MORRO Co-signed By: ANCELMO Heparin Sodium/Dextrose (Heparin Iv Adult Wt-Based Low-Dose W/ Initial Bolus Protocol) 1 each IV NOW STA; Protocol Stop: 07/15/24 14:43 Last Admin: 07/15/24 15:15 Dose: 1 each Documented By: MORRO Imaging Data Radiologist's Impression: Chest X-Ray 07/15/24 12:21 EXAM:Radiograph of the Chest 1 View INDICATION: Chest pain. TECHNIQUE: Frontal view of the chest. COMPARISON:06/28/2022 FINDINGS: Lungs and pleural spaces: No consolidation or pulmonary edema. No pleural effusion or pneumothorax. Heart: Shape and configuration within normal limits allowing for technique. Mediastinum: Normal contour. Bones/joints: Degenerative changes noted throughout the spine. No acute osseous abnormality seen. Soft tissues: No abnormality noted. No radiopaque foreign body noted. Upper abdomen: No abnormality noted. IMPRESSION: No acute cardiopulmonary disease. ACT 112: Negative or not required by law. Electronically signed by Amanda Gan 07-15-2024 12:43 PM Discharge Plan Visit Data Chief Complaint: Chest Pain Stated Complaint: CHEST PAIN ED Provider: Anthony Cross Discharge Problem: Unstable angina Forms Stand Alone Forms: My [facility] [employer] Prescriptions Prescriptions: No Action amlodipine 5 mg tablet 5 mg PO DAILY Qty: 90 3RF atorvastatin 20 mg tablet 20 mg PO DAILY Qty: 90 3RF hydrochlorothiazide 25 mg tablet 25 mg PO QAM Qty: 90 3RF famotidine 20 mg tablet 20 mg PO DAILY PRN (Reason: gerd) Qty: 100 3RF tadalafil 5 mg tablet 5 mg PO DAILY Referrals Referrals: Paul Dotson DO [Primary Care Provider] -
[2024-07-15 12:43] LABS: Basophils # (auto) 0.04 K/uL (0.00-0.20); Basophils % (auto) 0.8 %; Hemoglobin 14.1 g/dl (14.0-18.0); Immature Granulocytes # (auto) 0.02 K/uL (0.01-0.20); Immature Granulocytes % (auto) 0.4 %; Mean Corpuscular Hgb Conc 33.6 g/dL (32.0-36.0); Mean Corpuscular Volume 86.2 fL (80.0-100.0); Mean Platelet Volume 10.6 fL (9.4-12.4); Monocytes # (auto) 0.57 K/uL (0.11-0.59); Monocytes % (auto) 11.4 %; Neutrophils # (auto) 3.28 K/uL (1.40-6.50); Neutrophils % (auto) 65.4 %; Platelet Count 180 K/uL (130-400); RDW Coefficient of Variation 13.2 % (11.5-14.5); RDW Standard Deviation 41.1 fL (36.4-46.3); Red Blood Count 4.87 M/uL (4.70-6.10); White Blood Count 5.01 K/ul (4.8-10.8)
--- NOTE | 2024-07-15 12:43 | XRay Report ---
EXAM:Radiograph of the Chest 1 View INDICATION: Chest pain. TECHNIQUE: Frontal view of the chest. COMPARISON:06/28/2022 FINDINGS: Lungs and pleural spaces: No consolidation or pulmonary edema. No pleural effusion or pneumothorax. Heart: Shape and configuration within normal limits allowing for technique. Mediastinum: Normal contour. Bones/joints: Degenerative changes noted throughout the spine. No acute osseous abnormality seen. Soft tissues: No abnormality noted. No radiopaque foreign body noted. Upper abdomen: No abnormality noted. IMPRESSION: No acute cardiopulmonary disease. ACT 112: Negative or not required by law. Electronically signed by Amanda Gan 07-15-2024 12:43 PM
[2024-07-15 13:29] LABS: Albumin Level 4.3 gm/dl (3.4-5.0); BUN Creatinine Ratio 15.4 (10-20); Bilirubin Direct 0.2 mg/dl (0-0.2); Bilirubin,Total 1.2 mg/dl (0.2-1.0); Calcium 9.6 mg/dl (8.6-10.3); Creatinine Clr Calc Pharmacy 67.4 ml/min; Magnesium 1.6 mg/dl (1.7-2.4); Potassium 3.5 mmol/L (3.5-5.1)
[2024-07-15 13:36] LABS: Troponin I High Sensitivity 10.2 pg/ml (0-20)
[2024-07-15 14:30] LABS: Partial Thromboplastin Time 26 Seconds (21-31); Prothrombin Time 10.9 Seconds (9.0-12.0)
--- NOTE | 2024-07-15 14:44 | History & Physical Report ---
Date of Service July 15, 2024 Assessment & Plan (1) Unstable angina: Plan: H/o angina, followed w/ Dr. Jonathan Brandon most recently 06/12/2024. Chest pain started 0900 the day of arrival, episode lasting consistently since then; occurs at same severity w/ exertion and rest; Still rating pain 2-3/10 on pain scale, unchanged since starting, "constant" - Admit med tele - EKG sinus rhythm, w/ PVCs and prolonged QT, rate 77bpm - Troponin 10.2 on admission - CBC and CMP grossly WNL exception of glucose 133, total bilirubin 1.2; PT/INR pending - Lipids (10/2023) - cholesterol 121, LDL 50, HDL 50, triglycerides 107 - pending repeat a.m. - Mg 1.6 - provided with magnesium sulfate IV in ED- pending repeat a.m. - Echo (Stress) 05/29/2024 - left ventricle normal size and systolic function, mild hypokinesis of lateral wall from base to mid ventricle, moderate KRZYSZTOF, mildly dilated ascending aorta, aortic root dilation, moderate concentric LVH - ASA chew 325 mg provided in ED - ASA 81mg daily - Patient unable to take NTG day of admission secondary to suspected recent tadalafil usage- patient unsure if he took this medication day of admission, however prescribed for daily use so erring on side of caution - HOLD - On amlodipine 5 mg; never been on a beta donita - start metoprolol tartrate 25mg BID - Started heparin in ED - Not on SHILPI inhibitor secondary to history of angioedema on medication - Atorvastatin 20 mg - Cardiology consulted - plans for catheterization discussed Appreciate cardiology input and recs (2) Hypomagnesemia: Plan: Identified on admission - Mg 1.6 - MgSO4 2g IV x 2 provided - Mg am (3) HTN (hypertension): Plan: H/o HTN, follows with primary care provider, most recently 06/20/24 - Amlodipine, HCTZ - Took AM medications (4) Hyperlipidemia: Plan: History of per PCP note (06/20) - Atorvastatin 20 mg - Lipids (10/2023) - cholesterol 121, LDL 50, HDL 50, triglycerides 107 - pending repeat a.m. Plan GERD- famotidine 20mg BPH- tadalafil 5 mg daily; unsure if he took on 07/15 so not giving nitroglycerin- HOLD Dispo: Admit med/telemetry Diet: Heart healthy, n.p.o. until chest pain free and ongoing at midnight VTE Prophylaxis: Started on heparin Code: Full Admission and Anticipated Discharge Date Admission Date: 07/15/2024 History of Present Illness Chief Complaint: Chest pain Primary Care Provider: Paul Dotson DO 78-year-old male presenting for ongoing chest pain that has worsened. ED course: CBC grossly WNL, CMP grossly WNL with exception of glucose 133, total bilirubin 1.3; magnesium 1.6; troponin 10.2; CXR no acute cardiopulmonary disease; EKG normal sinus with PVCs rate just below 80 bpm, QTc 484. Provided with aspirin in ED. Patient 78-year-old male PMHx of HTN, HLD, and BPH presenting for worsening of normal chest pain. Patient states he normally has chest pain with exertion or at rest but will be 2 out of 3 on the pain scale (0-10) and will resolve in less than 5 minutes. However, today he awoke at 0900 and notes that he had 2-3/10 chest pain, localized to left side of sternum that did not resolve. Notes that it does not worsen with activity, when laying flat, or with deep inspiration. Has been constant and unresolving. Did not try to take anything to resolve chest pain. Denies shortness of breath, palpitations, diaphoresis, or radiation of pain. No syncopal events. Patient states that he has had episodes like this happen before, but all that resolved within a few minutes. Has a history of GERD, this feels different. Took all a.m. medications. Pain still occurring at time of visit, 2-3 out of 10 on the pain scale. Please see Dr. Wiggins's attestation for adjustments/additions to treatment plan. Allergies Allergy/AdvReac Type Severity Reaction Status Date / Time Opioids - Morphine Analogues Allergy Intermediate Nausea Verified 07/16/24 11:18 oxycodone [From Percocet] Allergy Intermediate Nausea Verified 07/16/24 11:18 weed pollen Allergy Intermediate Nausea Verified 07/16/24 11:18 pollen extracts Allergy Unknown Unknown Verified 07/16/24 11:18 morphine AdvReac Unknown N/V, Verified 07/16/24 11:18 diaphoretic lisinopril Allergy Intermediate angioedema Uncoded 07/16/24 11:18 Home Medications Medication Instructions Recorded Confirmed Type hydrochlorothiazide 25 mg tablet 25 mg PO QAM #90 tabs 11/07/23 07/15/24 Rx amlodipine 5 mg tablet 5 mg PO DAILY #90 tabs 12/29/23 07/15/24 Rx famotidine 20 mg tablet 20 mg PO DAILY PRN gerd #100 tabs 05/07/24 07/15/24 Rx atorvastatin 20 mg tablet 20 mg PO DAILY #90 tabs 05/23/24 07/15/24 Rx tadalafil 5 mg tablet 5 mg PO DAILY 07/15/24 07/15/24 History Past Med/Surg History Problem List (Updated 07/16/24 @ 11:23 by Debi Monahan MD) Chest pain with high risk of acute coronary syndrome Unstable angina (Acute) Hypomagnesemia Unstable angina Abnormal stress test Dyspnea on exertion Palpitation Erectile dysfunction Benign prostatic hyperplasia (BPH) with straining on urination Cyst of kidney, acquired Varicose vein of leg Rash HTN (hypertension) (Acute) Hyperlipidemia Allergic rhinitis 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) Impaired fasting glucose Medical History COVID Arthritis of left acromioclavicular joint Left rotator cuff tear Vertigo Occasionally Renal cyst Just monitoring Left shoulder pain Dizziness Vitamin D deficiency Anxiety BMI 33.0-33.9,adult BRBPR (bright red blood per rectum) Belching Chronic sinusitis Excessive daytime sleepiness Excessive sweating Hiatal hernia Tubular adenoma of colon Inguinal hernia Insomnia Loose bowel movement Melena Mixed conductive and sensorineural hearing loss Hearing aids bilaterally Nonspecific abnormal electrocardiogram (ECG) (EKG) Obstructive sleep apnea Osteoarthritis of knee Tick bite Vision disturbance Obesity (BMI 30-39.9) Osteoarthritis Chronic back pain GERD (gastroesophageal reflux disease) OCCASIONAL Surgical History History of ankle surgery right History of laminectomy lumbar H/O hernia repair History of total knee replacement LEFT KNEE History of repair of rotator cuff RIGHT W/ 3 SCREWS History of esophagogastroduodenoscopy (EGD) History of colonoscopy History of nasal septoplasty History of tonsillectomy History of adenoidectomy Family History Family/Other Hypertension Nephrolithiasis Denies family history of Ovarian cancer Prostate cancer Myocardial infarction Breast cancer Colorectal cancer Social History Smoking Status: Former smoker Tobacco Type: Cigarettes Age Started Using Tobacco: 14; Age Quit Using Tobacco: 40; Cigarettes Per Day: 0.5 ppd; Second Hand Exposure: No; Do You Dip or Chew Tobacco: No; Tobacco Cessation Education Requested by Patient: No Hx Alcohol Use: Yes Alcohol type: hard liquor Alcohol Intake Frequency: Monthly or Less Hx Substance Use: No Preferred Language: Portuguese Communication Ability: Effective Visual Impairment: No Limitations Hearing Ability: Use of Hearing Aid Editor School Photograph Required: No Beliefs That Will Affect Care: None marital status: Current Living Situation: Spouse Current Living Situation Comment: lives home with current occupational status: retired How many Children do You have: 1 Other Information That Helps Us Care for You: No Feels Safe at Home: Yes Childhood Exposure to Second-Hand Smoke: Yes Diet: regular caffeine: Yes during the past year weight has: remained stable Dental Care, Regularly: Yes Physical Activity Frequency: Daily Seatbelt Use: always Sunscreen Use: No Do you think of yourself as: straight/heterosexual Sexual Activity: has been sexually active, but not for at least 12 months Gender Identity: Male Assistive Devices: None Review of Systems Review of Systems: All systems reviewed & are unremarkable except as noted in Subjective Physical Exam Physical Exam: General: No acute distress Skin: Warm and dry, without rashes or lesions Head: Normocephalic, atraumatic Eyes: PERRL, conjunctivae clear, sclera non-icteric; EOM intact ENT: External ear and ear canal without swelling, wearing hearing aids bilaterally; nose atraumatic; good dentition, tongue normal appearance Neck: Supple, no LAD; no JVD Cardio: RRR, no M/G/R, S1 and S2 normal; minimal tenderness to palpation at posterior area L sternum, no skin changes Resp: No respiratory distress, Lungs CTA in all lobes bilaterally, no wheezes, rales, or rhonchi Abdomen: Soft, symmetric, nontender; no distention; No masses or hepatosplenomegaly; Bowel sounds normoactive MSK: No deformities; pulses palpable and equal; no edema. Neuro: Awake, alert; Sensation intact bilaterally; CN intact Psych: Appropriate mood and affect; good judgement and insight. Results & Data Results & Data Vital Signs (Past 12 Hours) Vital Signs Temp Pulse Pulse Resp BP BP Pulse Ox 07/15/24 14:11 66 18 151/97 H 94 07/15/24 13:44 63 20 132/70 95 07/15/24 12:34 75 07/15/24 12:03 71 20 166/85 H 94 07/15/24 12:03 94 07/15/24 11:54 36.5 C 66 18 153/80 H 94 O2 Del Method 07/15/24 14:11 Room Air 07/15/24 13:44 Room Air 07/15/24 12:34 07/15/24 12:03 Room Air 07/15/24 12:03 Room Air 07/15/24 11:54 Room Air Laboratory Results Chest X-Ray 07/15/24 12:21 EXAM:Radiograph of the Chest 1 View INDICATION: Chest pain. TECHNIQUE: Frontal view of the chest. COMPARISON:06/28/2022 FINDINGS: Lungs and pleural spaces: No consolidation or pulmonary edema. No pleural effusion or pneumothorax. Heart: Shape and configuration within normal limits allowing for technique. Mediastinum: Normal contour. Bones/joints: Degenerative changes noted throughout the spine. No acute osseous abnormality seen. Soft tissues: No abnormality noted. No radiopaque foreign body noted. Upper abdomen: No abnormality noted. IMPRESSION: No acute cardiopulmonary disease. ACT 112: Negative or not required by law. Electronically signed by Amanda Gan 07-15-2024 12:43 PM Diagnostic Findings Chest X-Ray 07/15/24 12:21 EXAM:Radiograph of the Chest 1 View INDICATION: Chest pain. TECHNIQUE: Frontal view of the chest. COMPARISON:06/28/2022 FINDINGS: Lungs and pleural spaces: No consolidation or pulmonary edema. No pleural effusion or pneumothorax. Heart: Shape and configuration within normal limits allowing for technique. Mediastinum: Normal contour. Bones/joints: Degenerative changes noted throughout the spine. No acute osseous abnormality seen. Soft tissues: No abnormality noted. No radiopaque foreign body noted. Upper abdomen: No abnormality noted. IMPRESSION: No acute cardiopulmonary disease. ACT 112: Negative or not required by law. Electronically signed by Amanda Gan 07-15-2024 12:43 PM Medications Administered Aspirin 324 mg p.o., magnesium sulfate IV ECG Additional Comments: Sinus rhythm, frequent and consecutive PVCs; prolonged QT 77 bpm [place] 188, QRS 74, QT/QTc 428/484 Code Status & VTE Plan Code Status Full Supervising Physician Co-Signing Physician Notes I personally saw and examined the patient. I independently reviewed the labs, EKG, imaging, problem list, medication list, past medical history and family history. I verified all smart points and agree with Leoncio Glass PA-C with the following exceptions and/or additions: 78 year old male presents to the ER with intermittent chest pain. Known abnormal stress May 29. O/E HS RRR, no murmurs, Chest CTAB, Abdo SNT A/P Unstable angina - ASA, metoprolol, IV heparin, continue atorvastatin (consider increasing dose if significant CAD or LDL > 70. NPO after midnight, consult cardiology PG Care Time/CCT Total # of Minutes Spent Total Time Spent with Patient: Total time spent is greater than 50% in coordination of care (as documented) at patient's floor/unit and/or counseling patient: Coding Level of Care Code 97596 INT INP/OBS CARE 2/55MIN Diagnoses Unstable angina I20.0 Hypomagnesemia E83.42 HTN (hypertension) I10 Hypertension type: unspecified Hyperlipidemia E78.5 Time Spent (min) 65 (3) HTN (hypertension) Hypertension type: unspecified Qualified Code(s): I10 - Essential (primary) hypertension
[2024-07-15] MEDS ORDERED: Heparin IV Adult Wt-Based Low-Dose w/ INITIAL Bolus Protocol IV SCH (15:00)
[2024-07-15] MEDS: ASPIRIN 81 MG CHEW PO STA (15:08)
[2024-07-15] MEDS: MAGNESIUM SULFATE / D5W 1 GM/100 ML BAG IV SCH (15:11)
[2024-07-15] MEDS: Heparin IV Adult Wt-Based Low-Dose w/ INITIAL Bolus Protocol IV STA (15:15)
[2024-07-15] MEDS: HEPARIN SODIUM/DEXTROSE 25,000 UNITS/500 ML BAG IV SCH (15:24)
[2024-07-15] MEDS: HEPARIN SOD (PORCINE) 1000 UNIT/ML IV ONE (15:25)
[2024-07-15] MEDS ORDERED: FAMOTIDINE 20 MG TAB PO PRN (18:33)
[2024-07-15] MEDS: METOPROLOL TARTRATE 25 MG TAB PO SCH (21:05)
[2024-07-15 22:00] LABS: ANTI-Xa, UFH(UnfractionatedHep 0.29 IU/ml (0.3-0.7)
[2024-07-16 05:47] LABS: Basophils # (auto) 0.05 K/uL (0.00-0.20); Basophils % (auto) 1.1 %; Eosinophils # (auto) 0.18 K/uL (0.00-0.50); Eosinophils % (auto) 3.9 %; Hematocrit (blood only) 38.7 % (42.0-52.0); Immature Granulocytes # (auto) 0.01 K/uL (0.01-0.20); Immature Granulocytes % (auto) 0.2 %; Lymphocytes # (auto) 1.08 K/uL (1.20-3.40); Lymphocytes % (auto) 23.3 %; Mean Corpuscular Hgb Conc 33.6 g/dL (32.0-36.0); Mean Corpuscular Volume 86.2 fL (80.0-100.0); Mean Platelet Volume 10.5 fL (9.4-12.4); Monocytes # (auto) 0.59 K/uL (0.11-0.59); Monocytes % (auto) 12.7 %; Neutrophils # (auto) 2.73 K/uL (1.40-6.50); Neutrophils % (auto) 58.8 %; Platelet Count 168 K/uL (130-400); RDW Coefficient of Variation 13.1 % (11.5-14.5); RDW Standard Deviation 40.5 fL (36.4-46.3); Red Blood Count 4.49 M/uL (4.70-6.10); White Blood Count 4.64 K/ul (4.8-10.8)
[2024-07-16 06:03] LABS: BUN Creatinine Ratio 13.7 (10-20); Calcium 8.7 mg/dl (8.6-10.3); Chol HDL Ratio 2.6 (0-5); Creatinine Clr Calc Pharmacy 63.4 ml/min; Magnesium 1.9 mg/dl (1.7-2.4); Potassium 3.6 mmol/L (3.5-5.1)
[2024-07-16 06:09] LABS: ANTI-Xa, UFH(UnfractionatedHep 0.32 IU/ml (0.3-0.7)
[2024-07-16 06:10] LABS: Troponin I High Sensitivity 8.5 pg/ml (0-20)
[2024-07-16] MEDS: hydroCHLOROthiazide 25 MG TAB PO SCH (07:30)
[2024-07-16] MEDS: ATORVASTATIN 20 MG TAB PO SCH (07:30)
[2024-07-16] MEDS: amLODIPine BESYLATE 5 MG TAB PO SCH (07:31)
[2024-07-16] MEDS: ASPIRIN 81 MG ECTAB PO SCH (07:31)
--- NOTE | 2024-07-16 08:40 | Hospitalist Progress Note ---
Date of Service July 16, 2024 Assessment & Plan (1) Unstable angina: Plan: H/o angina, followed w/ Dr. Jonathan Brandon most recently 06/12/2024. Chest pain started 0900 the day of arrival, episode lasting consistently since then; occurs at same severity w/ exertion and rest; Still rating pain 2-3/10 on pain scale, unchanged since starting, "constant" - EKG sinus rhythm, w/ PVCs and prolonged QT, rate 77bpm - Troponin 10.2 without rise on subsequent checks - - Echo (Stress) 05/29/2024 - left ventricle normal size and systolic function, mild hypokinesis of lateral wall from base to mid ventricle, moderate KRZYSZTOF, mildly dilated ascending aorta, aortic root dilation, moderate concentric LVH - ASA chew 325 mg provided in ED - ASA 81mg daily - On amlodipine 5 mg; never been on a beta donita - start metoprolol tartrate 25mg BID - Started heparin therapeutic infusion in ED - Not on SHILPI inhibitor secondary to history of angioedema on medication - Atorvastatin 20 mg - Cardiology consulted - plans for catheterization discussed (2) HTN (hypertension): Plan: H/o HTN, follows with primary care provider, most recently 06/20/24 - Amlodipine, HCTZ - Took AM medications (3) Hyperlipidemia: Plan: History of per PCP note (06/20) - Atorvastatin 20 mg - Lipids (10/2023) - cholesterol 121, LDL 50, HDL 50, triglycerides 107 - pending repeat a.m. Plan Hypomagnesemia replete GERD- famotidine 20mg BPH- tadalafil 5 mg daily; unsure if he took on 07/15 so not giving nitroglycerin- HOLD VTE Prophylaxis: Started on heparin Code: Full Admission and Anticipated Discharge Date Admission Date: July 15, 2024 Results & Data Results & Data Vital Signs (Past 12 Hours) Vital Signs Temp Pulse Pulse Resp BP Pulse Ox O2 Del Method 07/16/24 07:36 97.8 F 52 L 16 125/62 94 Room Air 07/16/24 07:28 Room Air 07/16/24 07:07 52 L 07/16/24 03:47 98.2 F 50 L 18 107/66 97 Room Air 07/15/24 23:19 97.9 F 95 H 20 117/88 92 Room Air 07/15/24 22:00 Room Air 07/15/24 21:40 71 PG Care Time/CCT Total # of Minutes Spent Total Time Spent with Patient: Total time spent is greater than 50% in coordination of care (as documented) at patient's floor/unit and/or counseling patient: Coding Diagnoses Unstable angina I20.0 HTN (hypertension) I10 Hypertension type: unspecified Hyperlipidemia E78.5 (2) HTN (hypertension) Hypertension type: unspecified Qualified Code(s): I10 - Essential (primary) hypertension
--- NOTE | 2024-07-16 09:33 | Cardiology Consultation ---
Date of Consultation July 16, 2024 Assessment & Plan (1) Chest pain with high risk of acute coronary syndrome: Mr. Siegel, 78/M with P/M/H of Angina, pending CT angio evaluation, HTN, HLD is a patient of Dr. Brandon, last visit on 06/12/2024 for chest pain. - Chest pain started few months back, sounds like anginal pain (RFs: Hyperlipidemia, HTN, Past Smoking, Obesity) - Stress Echo( 05/29): Inducible Ischemia on lateral wall. Normal LV size and systolic function. Moderate Aortic - Overnight Telemetry : Sinus Benjamin with Occasional PACs, no ST-T changes - Troponin 10.2---9.8--8.5, Given normal range of serial troponin, unstable angina is less likely, however he has multiple risk factor for CAD. - Given recurrent chest pain and evidence of inducible ischemia on Stress Echo, he will benefit from Coronary Catheterization procedure and this would give us definite answer for his chest pain. - Discussed with Dr. Slater, he will proceed catheterization today. - Continue Heparin, ASA, Amlodipine, HCTZ, Atorvastatin, metoprolol tartrate 25mg BID. - Given his sinus bradycardia might adjust Metoprolol dose after Catheterization procedure. He will benefit from current dose in case of positive catheterization result, otherwise will reduce dosing. (2) HTN (hypertension): - BP at goal: 125/62 this AM. Transiently high on ED, likely related to stress. - Monitor BP trend on admission. I believe he will sustain target with current medications. - Continue Amlodipine, 5 mg once daily, HCTZ 25 mg Once daily, Metoprolol. (3) Hyperlipidemia: - LDL:57, HDL: 45 - Atorvastatin 20 mg once daily, may need dose upgrade after PCI. In case of CAD on PCI, he will benefit from higher dose. Supervising Physician Co-Signing Physician Notes Patient seen and examined. Agree with assessment and plan as outlined by Dr. Monahan. Impression: 1. Chest pain syndrome -Numerous risk factors and inducible lateral wall ischemia on stress echocardiogram. -Will proceed with cardiac catheterization later today. 2. Hypertension -Adequate control on current regimen. 3. Hypercholesterolemia -Excellent control on current dose of atorvastatin. History of Present Illness Attending Physician: Moncho Stanton MD History of Present Illness Mr. Siegel, 78/M with P/M/H of Anginal chest pain pending CT angio evaluation, HTN, HLD, past smoking, and BPH was admitted yesterday from ED. He presented to ED after a prolonged episode of his usual chest pain, mild in intensity like before but lasted for almost an hour, hence he visited ED. His previous CP episodes lasted for about 5 minutes. Nature of CP was pricking type on his left side of sternum, non radiating, non migrating, not related to any activity as per patient. It was constant, non progressive with no aggravation factor. He did not use any medicine at home. No chest pain after admission. No h/o SOB, palpitation, peripheral swelling, feeling of passing out or LOC, abnormal sweating. His dyspnea, mainly exertional, started couple of months before he visited Dr. Brandon on Cardiology outpatient at end of May. His PCP evaluated him with exercise stress test, showing ischemia of lateral wall. Aleksandr Herrera suggested for Coronary catheterization vs CT angio and having mild symptom free during visit patient opted for CT angio, which is scheduled for September 2024. No past h/o Heart attack, Stroke or similar chest pain needing intervention. H/O angioedema in SHILPI inhibitor in past. H/O recent Tadalafil use, not sure of his last dose. Overnight Tele: Sinus benjamin with occasional PACs, no ST-T changes. Patient is aware of catheterization procedure planned for him and agrees with this. Allergies Allergy/AdvReac Type Severity Reaction Status Date / Time Opioids - Morphine Analogues Allergy Intermediate Nausea Verified 07/16/24 11:18 oxycodone [From Percocet] Allergy Intermediate Nausea Verified 07/16/24 11:18 weed pollen Allergy Intermediate Nausea Verified 07/16/24 11:18 pollen extracts Allergy Unknown Unknown Verified 07/16/24 11:18 morphine AdvReac Unknown N/V, Verified 07/16/24 11:18 diaphoretic lisinopril Allergy Intermediate angioedema Uncoded 07/16/24 11:18 Home Medications Medication Instructions Recorded Confirmed Type hydrochlorothiazide 25 mg tablet 25 mg PO QAM #90 tabs 11/07/23 07/15/24 Rx amlodipine 5 mg tablet 5 mg PO DAILY #90 tabs 12/29/23 07/15/24 Rx famotidine 20 mg tablet 20 mg PO DAILY PRN gerd #100 tabs 05/07/24 07/15/24 Rx atorvastatin 20 mg tablet 20 mg PO DAILY #90 tabs 05/23/24 07/15/24 Rx tadalafil 5 mg tablet 5 mg PO DAILY 07/15/24 07/15/24 History Patient History Medical History COVID Arthritis of left acromioclavicular joint Left rotator cuff tear Vertigo Occasionally Renal cyst Just monitoring Left shoulder pain Dizziness Vitamin D deficiency Anxiety BMI 33.0-33.9,adult BRBPR (bright red blood per rectum) Belching Chronic sinusitis Excessive daytime sleepiness Excessive sweating Hiatal hernia Tubular adenoma of colon Inguinal hernia Insomnia Loose bowel movement Melena Mixed conductive and sensorineural hearing loss Hearing aids bilaterally Nonspecific abnormal electrocardiogram (ECG) (EKG) Obstructive sleep apnea Osteoarthritis of knee Tick bite Vision disturbance Obesity (BMI 30-39.9) Osteoarthritis Chronic back pain GERD (gastroesophageal reflux disease) OCCASIONAL Surgical History History of ankle surgery right History of laminectomy lumbar H/O hernia repair History of total knee replacement LEFT KNEE History of repair of rotator cuff RIGHT W/ 3 SCREWS History of esophagogastroduodenoscopy (EGD) History of colonoscopy History of nasal septoplasty History of tonsillectomy History of adenoidectomy Family History Family/Other Hypertension Nephrolithiasis Denies family history of Ovarian cancer Prostate cancer Myocardial infarction Breast cancer Colorectal cancer Social History Smoking Status: Former smoker Tobacco Type: Cigarettes Age Started Using Tobacco: 14; Age Quit Using Tobacco: 40; Cigarettes Per Day: 0.5 ppd; Second Hand Exposure: No; Do You Dip or Chew Tobacco: No; Tobacco Cessation Education Requested by Patient: No Hx Alcohol Use: Yes Alcohol type: hard liquor Alcohol Intake Frequency: Monthly or Less Hx Substance Use: No Preferred Language: Kinyarwanda Communication Ability: Effective Visual Impairment: No Limitations Hearing Ability: Use of Hearing Aid Project Management Professor Required: No Beliefs That Will Affect Care: None marital status: Current Living Situation: Spouse Current Living Situation Comment: lives home with current occupational status: retired How many Children do You have: 1 Other Information That Helps Us Care for You: No Feels Safe at Home: Yes Childhood Exposure to Second-Hand Smoke: Yes Diet: regular caffeine: Yes during the past year weight has: remained stable Dental Care, Regularly: Yes Physical Activity Frequency: Daily Seatbelt Use: always Sunscreen Use: No Do you think of yourself as: straight/heterosexual Sexual Activity: has been sexually active, but not for at least 12 months Gender Identity: Male Assistive Devices: None Review of Systems Review of Systems: As per HPI Physical Exam Physical Exam: Constitutional: Well appearing, No acute distress, lying comfortably on bed HEENT: Atraumatic, Normocephalic, No conjunctival injection CVS: S1 S2 no murmur, Regular Rhythm, no LE edema, normal JVP Respiratory: BL equal air entry with NVBS. No rhonchi, wheezes, or crackles. No increased work of breathing GI: Soft, Nondistended, Nontender, Normal Bowel sounds + Neuro: Alert, Oriented to TPP, No Focal deficit Psych: Mood and Affect congruent, Cooperative on exam Results & Data Vital Signs (Past 12 Hours) Vital Signs Temp Pulse Pulse Resp BP Pulse Ox O2 Del Method 07/16/24 07:36 36.6 C 52 L 16 125/62 94 Room Air 07/16/24 07:28 Room Air 07/16/24 07:07 52 L 07/16/24 03:47 36.8 C 50 L 18 107/66 97 Room Air 07/15/24 23:19 36.6 C 95 H 20 117/88 92 Room Air 07/15/24 22:00 Room Air 07/15/24 21:40 71 Resident Activity Tracking Resident Involvement: Resident Care Provided Care Provided: Adult Hospital Medicine (2) HTN (hypertension) Hypertension type: unspecified Qualified Code(s): I10 - Essential (primary) hypertension
[2024-07-16 11:17] VITALS: RESP 18
[2024-07-16 12:01] LABS: ANTI-Xa, UFH(UnfractionatedHep 0.31 IU/ml (0.3-0.7)
[2024-07-16] MEDS: NITROGLYCERIN/D5W 100MCG/ML 20ML SYR ONE (12:08)
[2024-07-16] MEDS: niCARdipine 2,000 MCG/20 ML SYR ONE (12:08)
[2024-07-16] MEDS: MIDAZOLAM HCL 1 MG/ML 2ML VIAL ONE (12:31)
[2024-07-16] MEDS: HEPARIN (PORCINE) 1000 UNIT/ML 10 ML (CATH LAB USE ONLY) ONE (12:31)
[2024-07-16] MEDS: fentaNYL citrate PF 100 MCG/2 ML VIAL ONE (12:32)
[2024-07-16] MEDS: OPTIRAY 350 ONE (12:32)
[2024-07-16 12:48] VITALS: TEMP 98.3
--- NOTE | 2024-07-16 12:49 | Pre Anesthesia Assessment ---
Date of Service July 16, 2024 Pre Sedation Assessment Vital Signs Temp Pulse Pulse Resp BP BP Pulse Ox 07/16/24 12:40 98.3 F 61 18 138/65 94 07/16/24 11:12 84 18 135/85 97 07/16/24 07:36 97.8 F 52 L 16 125/62 94 07/16/24 07:28 07/16/24 07:07 52 L 07/16/24 03:47 98.2 F 50 L 18 107/66 97 07/15/24 23:19 97.9 F 95 H 20 117/88 92 07/15/24 22:00 07/15/24 21:40 71 07/15/24 19:51 98.1 F 77 18 138/77 92 07/15/24 18:37 98.2 F 67 18 146/82 H 96 07/15/24 17:49 98.0 F 62 20 140/78 93 07/15/24 17:12 96 07/15/24 17:03 95 07/15/24 16:51 95 07/15/24 16:42 97 07/15/24 16:18 72 19 96 07/15/24 16:00 70 18 93 07/15/24 16:00 134/81 07/15/24 15:51 78 16 96 07/15/24 15:33 80 20 98 07/15/24 15:21 69 19 95 07/15/24 15:14 69 18 165/92 H 95 07/15/24 15:09 71 15 97 07/15/24 15:08 165/92 H 07/15/24 14:42 68 18 96 07/15/24 14:24 68 13 97 07/15/24 14:12 151/97 H 07/15/24 14:11 66 18 151/97 H 94 07/15/24 13:44 63 20 132/70 95 07/15/24 13:43 132/70 O2 Del Method 07/16/24 12:40 Room Air 07/16/24 11:12 Room Air 07/16/24 07:36 Room Air 07/16/24 07:28 Room Air 07/16/24 07:07 07/16/24 03:47 Room Air 07/15/24 23:19 Room Air 07/15/24 22:00 Room Air 07/15/24 21:40 07/15/24 19:51 Room Air 07/15/24 18:37 Room Air 07/15/24 17:49 Room Air 07/15/24 17:12 07/15/24 17:03 07/15/24 16:51 07/15/24 16:42 07/15/24 16:18 07/15/24 16:00 07/15/24 16:00 07/15/24 15:51 07/15/24 15:33 07/15/24 15:21 07/15/24 15:14 Room Air 07/15/24 15:09 07/15/24 15:08 07/15/24 14:42 07/15/24 14:24 07/15/24 14:12 07/15/24 14:11 Room Air 07/15/24 13:44 Room Air 07/15/24 13:43 Cardiovascular + regular rate Respiratory + respiratory effort normal Pre-Sedation Airway Assessment Smoking Status: Former smoker Hx Sleep Apnea: No Hx Difficult Intubation: No Short, Thick Neck: No Thyromental Distance: > or= 3.5 Finger Breadths Oral Cavity: + WNL Mallampati Class: III ASA: ASA3 NPO Status Date of Last Intake of Fluids: 07/15/24 Time of Last Intake of Fluids: 18:00 Date of Last Intake of Solid Food: 07/15/24 Time of Last Intake of Solid Foods: 18:00 Procedure Planning Contraindications for Sedation: none Current Medications Reviewed: Yes Notes The planned sedation has been discussed with the patient. Informed Consent was obtained. I have identified the patient, determined the appropriateness of sedation and have assessed the patient immediately prior to the procedure. All medicine(s) and interventions are by my order.
--- NOTE | 2024-07-16 12:49 | Post Anesthesia Assessment ---
Date of Service July 16, 2024 Post Sedation Assessment Vital Signs Temp Pulse Pulse Resp BP BP Pulse Ox 07/16/24 12:40 98.3 F 61 18 138/65 94 07/16/24 11:12 84 18 135/85 97 07/16/24 07:36 97.8 F 52 L 16 125/62 94 07/16/24 07:28 07/16/24 07:07 52 L 07/16/24 03:47 98.2 F 50 L 18 107/66 97 07/15/24 23:19 97.9 F 95 H 20 117/88 92 07/15/24 22:00 07/15/24 21:40 71 07/15/24 19:51 98.1 F 77 18 138/77 92 07/15/24 18:37 98.2 F 67 18 146/82 H 96 07/15/24 17:49 98.0 F 62 20 140/78 93 07/15/24 17:12 96 07/15/24 17:03 95 07/15/24 16:51 95 07/15/24 16:42 97 07/15/24 16:18 72 19 96 07/15/24 16:00 70 18 93 07/15/24 16:00 134/81 07/15/24 15:51 78 16 96 07/15/24 15:33 80 20 98 07/15/24 15:21 69 19 95 07/15/24 15:14 69 18 165/92 H 95 07/15/24 15:09 71 15 97 07/15/24 15:08 165/92 H 07/15/24 14:42 68 18 96 07/15/24 14:24 68 13 97 07/15/24 14:12 151/97 H 07/15/24 14:11 66 18 151/97 H 94 07/15/24 13:44 63 20 132/70 95 07/15/24 13:43 132/70 O2 Del Method 07/16/24 12:40 Room Air 07/16/24 11:12 Room Air 07/16/24 07:36 Room Air 07/16/24 07:28 Room Air 07/16/24 07:07 07/16/24 03:47 Room Air 07/15/24 23:19 Room Air 07/15/24 22:00 Room Air 07/15/24 21:40 07/15/24 19:51 Room Air 07/15/24 18:37 Room Air 07/15/24 17:49 Room Air 07/15/24 17:12 07/15/24 17:03 07/15/24 16:51 07/15/24 16:42 07/15/24 16:18 07/15/24 16:00 07/15/24 16:00 07/15/24 15:51 07/15/24 15:33 07/15/24 15:21 07/15/24 15:14 Room Air 07/15/24 15:09 07/15/24 15:08 07/15/24 14:42 07/15/24 14:24 07/15/24 14:12 07/15/24 14:11 Room Air 07/15/24 13:44 Room Air 07/15/24 13:43 Recovery Score Activity: Moves 4 extremities Respiration: Deep Breath/Cough Circulation: +/-20% PreAnes Value Consciousness: Fully Awake Oxygen Saturation: > 92% On Room Air Post Anesthesia Score: 10 Discharge Sedation Level of Care: Fast Track Phase II Post Sedation Plan On clinical assessment, the patient appears to have tolerated the sedation without complications. Patient is recovering as anticipated. Patient will continue to be monitored by nursing and may be discharged when sedation discharge criteria are met per below protocol. Upon Completions of procedure up to 15 minutes continue every 5 minute vital signs and the P.A.R. score; then discharge to a Phase I or Fast Track to Phase II per the following guidelines: * Discharge Patient to appropriate Phase II area if PAR is 8 or greater or return to pre- procedure baseline. The post - procedure orders will be as directed. * If PAR score is less than 8 or not return to pre-procedure baseline then patient will follow Phase I monitoring till PAR is reached for Phase II. The Phase I may be done in procedure room or may call to secure a Phase I area. * If naloxone or flumazenil are used for reversal, hold in Phase I for continued monitoring from when last reversal dose was given for a minimum of 60 minutes or longer pending the nurse and/or physician discretion of patient condition before discharge to Phase II. Please call the Sedation Physician to re-evaluate and complete post-note for discharge to Phase II area. Do NOT discharge from procedure sedation or Phase 1 until post- sedation evaluation note is complete by procedure /sedation MD Sedation Discharge Instructions to be given to the patient at discharge to home.
--- NOTE | 2024-07-16 12:52 | Cardiac Catheterization ---
[facility] Data: Paper Goods Machine Operator Cardiac Status Clinical evaluation leading to the procedure CAD Presenation: Positive Stress Test and Unstable angina Anginal Classification: CCS IV Diagnostic Physicians Name: Chencho Slater MD Closure Device Recommendations: Medical Therapy and/or Counseling Cardiac Cath Procedure Full Procedure Date July 16, 2024 Pre-Procedure Diagnosis Pre-Procedure Diagnosis: Angina and Positive Stress Test AUC Score AUC Score: 7 Post-Procedure Diagnosis Post-Procedure Diagnosis: Normal Coronary Arteries and Normal Intracardiac Pressures Procedure(s) Performed Procedure(s) Performed: Coronary Angiography and Left Heart Cath Candle Wrapper Chencho Slater MD Substation Superintendent(s) Sander Estimated Blood Loss Estimated Blood Loss: 10 Medication(s) Medication(s): Fentanyl, Heparin, Lidocaine 1%, Nicardipine, Nitroglycerin and Versed Summary of Findings Indication: Unstable angina, abnormal stress test with lateral wall motion abnormality Access: 6 Fr slender right radial artery Catheters: [place] Findings: LM -normal caliber, long vessel without significant disease. LAD - Large-caliber, proximal luminal irregularities, myocardial bridging in mid segment just after takeoff of D2. Distal vessel without significant disease and wraps around apex. Large D1 without disease. Circumflex -angulated takeoff, medium caliber, no significant disease. High OM1 without disease. RCA -dominant, tortuous, large caliber, no significant disease. Small PDA, large R PLB without disease. LVEDP -7 Arterial Closure: TR band Summary: 1. Angiographically normal coronary arteries 2. Normal intracardiac filling pressure Recommendations: No acute or high risk findings to explain patient's recent chest symptoms. Stress test was a false positive. Continued ASCVD risk factor modification Hemodynamics Rest Ao:: 112/60/84 Final Ao: 117/57/84 LV: 103/7 Recommendations Recommendations: Medical Therapy and/or Counseling Radiation Exposure (mGy) 1018 Contrast (mls) 60 Anesthesia Moderate [id number] Procedural Complication(s) None Disposition Paper Goods Machine Operator Holding/Recovery I attest to the content of the Intraoperative Record and any orders documented therein. Any exceptions are noted below. [facility] Card Cath Procedure Codes Cardiac Catheterization Procedure 1: Cardiovascular Cath Procedures: 74526 Coronaries and LHC (+/-LV) Moderate Sedation Procedure 1: Sedation/Anesthesia: 16734 Mod Sedation by the same physician;Init15 Min Child Age 5 & Up PG Care Time/CCT Total # of Minutes Spent Total Time Spent with Patient: Total time spent is greater than 50% in coordination of care (as documented) at patient's floor/unit and/or counseling patient:
--- NOTE | 2024-07-16 13:44 | Electrocardiogram Report ---
Test Reason : Blood Pressure : */* mmHG Vent. Rate : 77 BPM Atrial Rate : 77 BPM P-R Int : 188 ms QRS Dur : 94 ms QT Int : 428 ms P-R-T Axes : 33 37 43 degrees QTcB Int : 484 ms Sinus rhythm with frequent , and consecutive Premature ventricular complexes Prolonged QT Abnormal ECG When compared with ECG of 08-Apr-2021 09:48, Premature ventricular complexes are now Present OR interval has decreased Confirmed by Omero Barajas ([id number]) on 07/16/2024 1:43:37 PM Referred By: REFERRED SELF Confirmed By: Omero Barajas
--- NOTE | 2024-07-16 13:56 | Communication Note ---
Date of Service: July 16, 2024 By CMS guidelines, a determination that the admission or continued stay is not medically necessary has been made by a member of the UR committee and a ph ysician for this hospital stay, therefore a Code 44 will be completed and the Inpatient admission will be changed to outpatient.
--- NOTE | 2024-07-16 14:01 | Discharge Summary ---
Discharge Summary Date of Service July 16, 2024 Principal Dx & Hospital Course #1 = Principal Diagnosis (1) Chest pain: Initial pain is described as sharp EKG sinus rhythm, w/ PVCs and prolonged QT, rate 77bpm - Troponin 10.2 on admission - - Lipids (10/2023) - cholesterol 121, LDL 50, HDL 50, triglycerides 107 - - Echo (Stress) 05/29/2024 - left ventricle normal size and systolic function, mild hypokinesis of lateral wall from base to mid ventricle, moderate [id number], mildly dilated ascending aorta, aortic root dilation, moderate concentric LVH - - Not on SHILPI inhibitor secondary to history of angioedema on medication - Atorvastatin 20 mg - Cardiology consulted Left heart cath was with normal coronary arteries, Cardiology feels stress test is a false positive Pt to be discharged to continue on medical regimen and to follow up with primary care - (2) Hypomagnesemia: replete (3) HTN (hypertension): H/o HTN, follows with primary care provider, most recently 06/20/24 - Amlodipine, HCTZ (4) Hyperlipidemia: History of per PCP note (06/20) - Atorvastatin 20 mg - Lipids (10/2023) - cholesterol 121, LDL 50, HDL 50, triglycerides 107 - Plan GERD- famotidine 20mg BPH- tadalafil 5 mg daily; unsure if he took on 07/15 so not giving nitroglycerin- HOLD Notes For Next Care Provider CP described as sharp, intermittent pt offered to stay for additional Chest CT with contrast but since had contrast 07/16 would need to [place] another day, opted for dishcarge Admission HPI Per Admitting Provider 78-year-old male presenting for ongoing chest pain that has worsened. ED course: CBC grossly WNL, CMP grossly WNL with exception of glucose 133, total bilirubin 1.3; magnesium 1.6; troponin 10.2; CXR no acute cardiopulmonary disease; EKG normal sinus with PVCs rate just below 80 bpm, QTc 484. Provided with aspirin in ED. Patient 78-year-old male PMHx of HTN, HLD, and BPH presenting for worsening of normal chest pain. Patient states he normally has chest pain with exertion or at rest but will be 2 out of 3 on the pain scale (0-10) and will resolve in less than 5 minutes. However, today he awoke at 0900 and notes that he had 2-3/10 chest pain, localized to left side of sternum that did not resolve. Notes that it does not worsen with activity, when laying flat, or with deep inspiration. Has been constant and unresolving. Did not try to take anything to resolve chest pain. Denies shortness of breath, palpitations, diaphoresis, or radiation of pain. No syncopal events. Patient states that he has had episodes like this happen before, but all that resolved within a few minutes. Has a history of GERD, this feels different. Took all a.m. medications. Pain still occurring at time of visit, 2-3 out of 10 on the pain scale. Please see Dr. Wiggins's attestation for adjustments/additions to treatment plan. Discharge Exam awake and alert, no chest pain at present right hand with good cap refill and sensation Discharge Plan Discharge Items Patient Disposition: Home - Self-Care Reason For Visit: UNSTABLE ANGINA Discharge Diagnosis: non cardiac chest pain heart catheterization without significant heart disease Activity: Resume your previous activity Non-emergency contact: Primary Care Provider Call non-emergency contact if: your symptoms worsen Follow-up/Referrals: Paul Dotson DO [Primary Care Provider] - Diet: Heart Healthy Addtl Attending Provider Instructions: ACTIVITY RECOMMENDATIONS: Excess manipulation of the wrist should be avoided for the next 24-48 hours. * No lifting over 2 pounds (approximately a 1/2 gallon of milk) with the utilized arm for 24 hours. * No strenuous activity such as bowling or tennis for 3 days. * Keep the site of the procedure covered with a bandage for 24 hours. *You may shower the day after the procedure. Do not take a tub bath or submerge the puncture site in water for the next 3 days. *Do not operate any motorized equipment for 3 days. SPECIAL CARE INSTRUCTIONS: The site may be slightly bruised and sore following your procedure. Should any of the following occur, contact the Dr. who performed your procedure. 1. Redness/inflammation, swelling, chills, or fever, or colored drainage at procedure site within 3-7 days after your procedure. 2. Coldness, discoloration, ongoing numbness, severe pain, or swelling. Expect mild tingling of hand and tenderness at the puncture site for up to three days. If this persists beyond three days, or other symptoms develop, notify the DrMaikol who performed your procedure. BLEEDING: If the procedure site on your wrist begins to bleed, do not panic 1. Place 1 or 2 fingers firmly just slightly above the insertion site to stop the bleeding. You may be able to feel your pulse as you hold pressure. 2. Lift your finger after 5 minutes to see if the bleeding has stopped. 3. Once the bleeding has stopped, gently wipe the wrist area clean with a bandage. * If the bleeding from your wrist does not stop after 10 minutes, or if there is a large amount of bleeding or spurting, call 911 (do not drive yourself to the hospital). SKIN IRRITATION: * You may experience some redness and/or swelling in the area where radiation was administered. If any skin irritation occurs, please contact your family physician. FOLLOW UP VISIT: Keep any scheduled doctor appointments. Addtl Records Assistant Provider Instructions: Please follow up with your primary care doctor to continue to work thru other possibilities for your chest pain Pending Studies at Discharge: No Stand-Alone Forms: [employer], Smoking Cessation Medications and DC Order Prescriptions: Continued amlodipine 5 mg tablet 5 mg PO DAILY Qty: 90 3RF atorvastatin 20 mg tablet 20 mg PO DAILY Qty: 90 3RF hydrochlorothiazide 25 mg tablet 25 mg PO QAM Qty: 90 3RF famotidine 20 mg tablet 20 mg PO DAILY PRN (Reason: gerd) Qty: 100 3RF tadalafil 5 mg tablet 5 mg PO DAILY Admission Data Admit Date/Time: 07/15/24 14:39 Attending Provider: Moncho Stanton Admit Provider: Eran Wiggins Primary Care Provider: Paul Dotson Other Providers: rEan Wiggins; Chencho Slater Hospital Stay Data Consultations 07/15/24 14:03 ED Decision to Admit Stat 07/15/24 18:33 Consult Cardiology Routine Procedures Performed Operation Date: 07/16/24 12:00 Actual Procedures p Cineradiography w/Routine Exam - Chencho Slater MD p Cath, Left with Cors and Vent - Chencho Slater MD Diagnostic Imagining Performed 07/16/24 10:17 CL Cath Imgs for PACS use only Routine Pending Results Patient Have Any Pending Studies at Discharge: No Discharge Instructions Given to Patient (Per Discharging Provider) ACTIVITY RECOMMENDATIONS: Excess manipulation of the wrist should be avoided for the next 24-48 hours. * No lifting over 2 pounds (approximately a 1/2 gallon of milk) with the utilized arm for 24 hours. * No strenuous activity such as bowling or tennis for 3 days. * Keep the site of the procedure covered with a bandage for 24 hours. *You may shower the day after the procedure. Do not take a tub bath or submerge the puncture site in water for the next 3 days. *Do not operate any motorized equipment for 3 days. SPECIAL CARE INSTRUCTIONS: The site may be slightly bruised and sore following your procedure. Should any of the following occur, contact the Dr. who performed your procedure. 1. Redness/inflammation, swelling, chills, or fever, or colored drainage at procedure site within 3-7 days after your procedure. 2. Coldness, discoloration, ongoing numbness, severe pain, or swelling. Expect mild tingling of hand and tenderness at the puncture site for up to three days. If this persists beyond three days, or other symptoms develop, notify the Dr. who performed your procedure. BLEEDING: If the procedure site on your wrist begins to bleed, do not panic 1. Place 1 or 2 fingers firmly just slightly above the insertion site to stop the bleeding. You may be able to feel your pulse as you hold pressure. 2. Lift your finger after 5 minutes to see if the bleeding has stopped. 3. Once the bleeding has stopped, gently wipe the wrist area clean with a bandage. * If the bleeding from your wrist does not stop after 10 minutes, or if there is a large amount of bleeding or spurting, call 911 (do not drive yourself to the hospital). SKIN IRRITATION: * You may experience some redness and/or swelling in the area where radiation was administered. If any skin irritation occurs, please contact your family physician. FOLLOW UP VISIT: Keep any scheduled doctor appointments. Total Time Total Time Spent Total Time Spent (In Minutes): greater than 30 minutes were required to complete dc process Coding Level of Care Code 89524 INP/OBS DISCH >30 MIN Diagnoses Chest pain R07.9 Hypomagnesemia E83.42 HTN (hypertension) I10 Hypertension type: unspecified Hyperlipidemia E78.5
[2024-07-16 14:40] VITALS: O2SAT 96
[2024-07-16 15:10] VITALS: BP 124/67; PULSE 61
== END 2024-07-16 15:19 | disposition home or self-care (01) | DRG 287 ==
LOC: ED 11:50 → SUATTDRO 14:39 → 2W 14:39 → INTOOBSV 14:39 → 2W 18:08